=== PATIENT | female | born 1970 | race Caucasian/White ===

== ENCOUNTER 2018-01-07 11:09 | Emergency (ER) | payer OTHER ==
[2018-01-07 11:57] LABS: Absolute Lymphocytes (CBC) 1.5 K/uL (0.7-4.9); Absolute Monocytes 0.7 K/uL (0.1-1.3); Absolute Neutrophil 3.8 K/uL (1.8-8.0); Eosinophils % 4.7 % (0-4.4); Hematocrit 41.8 % (36.0-45.0); Lymphocytes % 23.3 % (15.3-44.8); MCH 33.4 pg (27.0-35.0); MCV 95.8 fL (80-100); MPV 10.5 fL (7.6-11.3); Monocytes % 10.5 % (3.3-12.3); Protime INR 0.92; RBC Red Blood Cell Count 4.36 M/uL (3.86-4.86)
[2018-01-07 12:04] LABS: Barbiturates NEGATIVE (NEGATIVE); Benzodiazepines NEGATIVE (NEGATIVE); Cocaine NEGATIVE (NEGATIVE); METHAMPHETAM NEGATIVE (NEGATIVE); Methadone NEGATIVE (NEGATIVE); Opiates NEGATIVE (NEGATIVE); Phencyclidine NEGATIVE (NEGATIVE); THC Cannibis NEGATIVE (NEGATIVE)
--- NOTE | 2018-01-07 12:15 | RAD REPORT ---
EXAM DESCRIPTION: CT - Head Brain Wo Cont - 01/07/2018 12:03 pm CLINICAL HISTORY: Syncope for COMPARISON: None. TECHNIQUE: Computed axial tomography of the head was obtained. IV contrast was not requested. All CT scans are performed using dose optimization technique as appropriate and may include automated exposure control or mA/KV adjustment according to patient size. FINDINGS: An intracranial bleed is not seen . The ventricles are normal in caliber. No extra-axial fluid collection is noted. Fluid within the sinuses/ mastoids is not seen. IMPRESSION: No acute intracranial abnormality is seen. If patient's symptoms persist MRI of the bra in would be recommended.
[2018-01-07] MEDS ORDERED: NA CHLORIDE 0.9% 1,000 ML ONE (12:16)
--- NOTE | 2018-01-07 12:20 | RAD REPORT ---
EXAM DESCRIPTION: RAD - Chest Single View - 01/07/2018 11:58 am CLINICAL HISTORY: Hypertension, cough, drug interaction COMPARISON: February 2017 TECHNIQUE: AP portable chest image was obtained 1155 hours . FINDINGS: Lungs are clear. Heart and vasculature are normal. No measurable pleural effusion and no p neumothorax. No acute bony abnormality seen. No acute aortic findings suspected. IMPRESSION: No acute cardiopulmonary process. No significant interval change.
[2018-01-07 12:31] LABS: ALT/SGPT 24 U/L (12-78); AST/SGOT 16 U/L (15-37); Albumin 3.7 g/dL (3.4-5.0); Alkaline Phosphatase 55 U/L (45-117); BUN Blood Urea Nitrogen 15 mg/dL (7-18); Bicarbonate 18 mmol/L (21-32); Bilirubin Direct 0.2 mg/dL (0-0.2); Bilirubin Total 0.7 mg/dL (0.2-1.0); Glucose Level 95 mg/dL (74-106); Lipase 311 U/L (73-393); Magnesium 2.2 mg/dL (1.8-2.4); NT PRO-BNP 359 pg/mL (<125); Potassium 4.2 mmol/L (3.5-5.1); Protein, Total 7.5 g/dL (6.4-8.2); Sodium Level 141 mmol/L (136-145); Troponin (Emerg Dept Use Only) < 0.02 ng/mL (0.0-0.045)
[2018-01-07 13:02] LABS: Urine Blood NEGATIVE (NEG); Urine Glucose NEGATIVE (NEG); Urine Protein NEGATIVE (NEG)
--- NOTE | 2018-01-07 13:29 | EDPHYS ---
Physician Documentation [facility] Name: Adriana Patton Age: 47 yrs Sex: Female : 1970 Arrival Date: 01/07/2018 Time: 11:12 Bed 8 Private MD: ED Physician Kirby Rodriguez HPI: 01/07 11:33 This 47 yrs old Female presents to ER via Ambulatory with complaints of martha Medical Complaint. 11:33 The patient has experienced near-syncope. Onset: The symptoms/episode began/occurred martha just prior to arrival. Duration: This was a single episode. Context: the episode(s) was witnessed, by family. Associated injury: The patient did not suffer any apparent associated injury. Associated signs and symptoms: The patient has no apparent associated signs or symptoms. The patient has not experienced similar symptoms in the past. 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 - Social history:: Smoking status: Patient/guardian denies using tobacco, Patient/guardian denies using alcohol. - Ebola Screening: : No symptoms or risks identified at this time. - Family history:: not pertinent. ROS: 11:33 Constitutional: Negative for fever, chills, and weight loss, Eyes: Negative for injury, martha pain, redness, and discharge, ENT: Negative for injury, pain, and discharge, Neck: Negative for injury, pain, and swelling, Cardiovascular: Negative for chest pain, palpitations, and edema, Respiratory: Negative for shortness of breath, cough, wheezing, and pleuritic chest pain, Abdomen/GI: Negative for abdominal pain, nausea, vomiting, diarrhea, and constipation, Back: Negative for injury and pain, : Negative for injury, bleeding, discharge, and swelling, MS/Extremity: Negative for injury and deformity, Skin: Negative for injury, rash, and discoloration, Psych: Negative for depression, anxiety, suicide ideation, homicidal ideation, and hallucinations, Allergy/Immunology: Negative for hives, rash, and allergies, Endocrine: Negative for neck swelling, polydipsia, polyuria, polyphagia, and marked weight changes, Hematologic/Lymphatic: Negative for swollen nodes, abnormal bleeding, and unusual bruising. 11:33 Neuro: Positive for near syncope. Exam: 11:33 Constitutional: This is a well developed, well nourished patient who is awake, alert, martha and in no acute distress. Head/Face: Normocephalic, atraumatic. Eyes: Pupils equal round and reactive to light, extra-ocular motions intact. Lids and lashes normal. Conjunctiva and sclera are non-icteric and not injected. Cornea within normal limits. Periorbital areas with no swelling, redness, or edema. ENT: Nares patent. No nasal discharge, no septal abnormalities noted. Tympanic membranes are normal and external auditory canals are clear. Oropharynx with no redness, swelling, or masses, exudates, or evidence of obstruction, uvula midline. Mucous membranes moist. Neck: Trachea midline, no thyromegaly or masses palpated, and no cervical lymphadenopathy. Supple, full range of motion without nuchal rigidity, or vertebral point tenderness. No Meningismus. Chest/axilla: Normal chest wall appearance and motion. Nontender with no deformity. No lesions are appreciated. Cardiovascular: Regular rate and rhythm with a normal S1 and S2. No gallops, murmurs, or rubs. Normal PMI, no JVD. No pulse deficits. Respiratory: Lungs have equal breath sounds bilaterally, clear to auscultation and percussion. No rales, rhonchi or wheezes noted. No increased work of breathing, no retractions or nasal flaring. Abdomen/GI: Soft, non-tender, with normal bowel sounds. No distension or tympany. No guarding or rebound. No evidence of tenderness throughout. Back: No spinal tenderness. No costovertebral tenderness. Full range of motion. Female : Normal external genitalia. Skin: Warm, dry with normal turgor. Normal color with no rashes, no lesions, and no evidence of cellulitis. MS/ Extremity: Pulses equal, no cyanosis. Neurovascular intact. Full, normal range of motion. Psych: Awake, alert, with orientation to person, place and time. Behavior, mood, and affect are within normal limits. 11:33 Neuro: Orientation: is normal, appropriate for stated age, no acute changes, Mentation: is normal, appropriate for stated age, no acute changes, Memory: is normal, appropriate for stated age, no acute changes, Cranial nerves: grossly normal, is grossly normal based on the patient's age, no acute changes, Cerebellar function: is grossly normal, is grossly normal based on the patient's age, no acute changes, Motor: is normal, is grossly normal based on the patient's age, Sensation: is normal, no obvious gross deficits, appropriate no acute changes, Gait: Babinski testing is normal, seizure activity, is not displayed by the patient. Vital Signs: 11:16 BP 171 / 100; Pulse 71; Resp 20; Temp 97.1; Pulse Ox 100% ; Weight 83.91 kg; Height 5 sv ft. 3 in. (160.02 cm); Pain 0/10; 12:33 BP 152 / 83; Pulse 59; Resp 16; Pulse Ox 100% on R/A; Pain 5/10; iw 11:16 Body Mass Index 32.77 (83.91 kg, 160.02 cm) sv MDM: 11:18 Patient medically screened. [facility] 11:36 Data reviewed: vital signs, nurses notes, lab test result(s), EKG, radiologic studies, [facility] CT scan, plain films. 01/07 11:23 Order name: Glucose, Ancillary Testing; Complete Time: 13:23 [facility] 01/07 11:32 Order name: Basic Metabolic Panel; Complete Time: 13:23 [facility] 01/07 11:32 Order name: CBC with Diff; Complete Time: 13:23 [facility] 01/07 11:32 Order name: LFT's; Complete Time: 13:23 [facility] 01/07 11:32 Order name: Magnesium; Complete Time: 13:23 [facility] 01/07 11:32 Order name: NT PRO-BNP; Complete Time: 13:23 [facility] 01/07 11:32 Order name: PT-INR; Complete Time: 13:23 [facility] 01/07 11:32 Order name: Troponin (emerg Dept Use Only); Complete Time: 13:23 [facility] 01/07 11:32 Order name: Lipase; Complete Time: 13:23 [facility] 01/07 11:32 Order name: Urine Culture [facility] 01/07 11:32 Order name: UDS; Complete Time: 13:23 [facility] 01/07 12:32 Order name: Urine Dipstick--Ancillary (enter results) 01/07 12:32 Order name: Urine --Ancillary (enter results) 01/07 12:33 Order name: Urine Dipstick-Ancillary; Complete Time: 13:23 [facility] 01/07 11:32 Order name: XRAY Chest (1 view); Complete Time: 13:23 [facility] 01/07 11:32 Order name: EKG; Complete Time: 11:33 [facility] 01/07 11:32 Order name: Cardiac monitoring; Complete Time: 12:37 [facility] 01/07 11:32 Order name: EKG - Nurse/Tech; Complete Time: 12:38 [facility] 01/07 11:32 Order name: IV Saline Lock; Complete Time: 11:47 [facility] 01/07 11:32 Order name: Labs collected and sent; Complete Time: 11:47 [facility] 01/07 11:32 Order name: O2 Per Protocol; Complete Time: 11:47 [facility] 01/07 11:32 Order name: O2 Sat Monitoring; Complete Time: 12:35 [facility] 01/07 11:32 Order name: CT Head Brain wo Cont; Complete Time: 13:23 [facility] 01/07 11:32 Order name: Urine Dipstick-Ancillary (obtain specimen); Complete Time: 12:35 [facility] 01/07 11:32 Order name: Urine Test (obtain specimen); Complete Time: 12:35 [facility] 01/07 12:33 Order name: Urine --Ancillary; Complete Time: 13:23 [facility] 01/07 13:24 Order name: PO challenge: juice; Complete Time: 13:27 [facility] Administered Medications: Discontinued: NS 0.9% 1000 ml IV at 125 ml/hr continuous 12:17 Drug: NS 0.9% 500 ml Route: IV; Rate: bolus; Site: right antecubital; iw 13:00 Follow up: IV Status: Completed infusion iw 13:04 Follow up: IV Status: Completed infusion; IV Intake: 500ml tl3 13:05 Drug: NS 0.9% 1000 ml Route: IV; Rate: 125 ml/hr; Site: right antecubital; Delivery: tl3 Primary tubing; Point of Care Testing: Blood Glucose: 11:23 Blood Glucose: 85 mg/dL; sv Ranges: Critical Glucose Levels:Adult <50 mg/dl or >400 mg/dl <40 mg/dl or >180 mg/dl Disposition: 01/07/18 13:28 Discharged to Home. Impression: Hyperglycemia, unspecified - resolved, Weakness, Unspecified kidney failure. - Condition is Stable. - Discharge Instructions: Hyperglycemia, Near-Syncope, Weakness, Fatigue, Near-Syncope, Ppur-[id number]-Ohdo, Blood Glucose Monitoring, Adult, Weakness, [id number]. - Medication Reconciliation Form, Thank You Letter, Antibiotic Education, Prescription Opioid Use, Family Work Release form. - Follow up: Private Physician; When: 48 Hours; Reason: Recheck today's complaints, Continuance of care, Re-evaluation by your physician. Signatures: Dispatcher [employer] Rosalee Pradhan RN RN sv Anderson, Corey, MD MD cha Williams, Irene, RN RN iw Lowrey, Tammy, RN RN tl3 Corrections: (The following items were deleted from the chart) 13:29 13:28 01/07/2018 13:28 Discharged to Home. Impression: Hyperglycemia, unspecified - martha resolved; Weakness. Condition is Stable. Forms are Medication Reconciliation Form, Thank You Letter, Antibiotic Education, Prescription Opioid Use. Follow up: Private Physician; When: 48 Hours; Reason: Recheck today's complaints, Continuance of care, Re-evaluation by your physician. [facility] 13:56 13:29 01/07/2018 13:28 Discharged to Home. Impression: Hyperglycemia, unspecified - iw resolved; Weakness; Unspecified kidney failure. Condition is Stable. Discharge Instructions: Hyperglycemia, Near-Syncope, Weakness, Fatigue, Near-Syncope, [id number]-[id number], Blood Glucose Monitoring, Adult, Weakness, [id number]. Forms are Medication Reconciliation Form, Thank You Letter, Antibiotic Education, Prescription Opioid Use. Follow up: Private Physician; When: 48 Hours; Reason: Recheck today's complaints, Continuance of care, Re-evaluation by your physician. martha
--- NOTE | 2018-01-07 13:29 | ER ---
Nurse's Notes [facility] Name: Adriana Patton Age: 47 yrs Sex: Female : 1970 Arrival Date: 01/07/2018 Time: 11:12 Bed 8 Private MD: Diagnosis: Hyperglycemia, unspecified-resolved;Weakness;Unspecified kidney failure Presentation: 01/07 11:14 Presenting complaint: Patient states: "My psychiatrist sent me over here because they sv think that I'm having interactions with my medications that are causing me to have high blood sugar." Symptoms have been going on for about 3 weeks, cold sweats, shaky and dry mouth. Transition of care: patient was not received from another setting of care. Onset of symptoms was December 2017. Care prior to arrival: None. 11:14 Method Of Arrival: Ambulatory sv 11:14 Acuity: NENA 3 sv 11:15 Risk Assessment: Do you want to hurt yourself or someone else? Patient reports no iw desire to harm self or others. 11:20 Initial Sepsis Screen: Does the patient meet any 2 criteria? No. Patient's initial iw sepsis screen is negative. Does the patient have a suspected source of infection? No. Patient's initial sepsis screen is negative. 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 - Social history:: Smoking status: Patient/guardian denies using tobacco, Patient/guardian denies using alcohol. - Ebola Screening: : No symptoms or risks identified at this time. - Family history:: not pertinent. Screenin:32 Abuse screen: Denies threats or abuse. Denies injuries from another. Nutritional iw screening: No deficits noted. Tuberculosis screening: No symptoms or risk factors identified. Fall Risk IV access (20 points). Assessment: 11:35 General: Appears in no apparent distress. comfortable, Behavior is calm, cooperative. iw Pain: Denies pain. Neuro: Level of Consciousness is awake, alert, obeys commands, Oriented to person, place, time, situation, Moves all extremities. Full function. Cardiovascular: Capillary refill < 3 seconds in bilateral fingers Patient's skin is warm and dry. Respiratory: Respiratory effort is even, unlabored, Respiratory pattern is regular, symmetrical. Derm: Skin is intact, is healthy with good turgor. Musculoskeletal: Range of motion: intact in all extremities. 12:31 Reassessment: Patient appears in no apparent distress at this time. Patient and/or iw family updated on plan of care and expected duration. Pain level reassessed. Patient is alert, oriented x 3, equal unlabored respirations, skin warm/dry/pink. Vital Signs: 11:16 BP 171 / 100; Pulse 71; Resp 20; Temp 97.1; Pulse Ox 100% ; Weight 83.91 kg; Height 5 sv ft. 3 in. (160.02 cm); Pain 0/10; 12:33 BP 152 / 83; Pulse 59; Resp 16; Pulse Ox 100% on R/A; Pain 5/10; iw 11:16 Body Mass Index 32.77 (83.91 kg, 160.02 cm) sv ED Course: 11:12 Patient arrived in ED. mr 11:16 Triage completed. sv 11:17 Kirby Rodriguez MD is Attending Physician. martha 11:17 Arm band placed on. sv 11:36 Evangelina Benton, RN is Primary Nurse. iw 11:44 Initial lab(s) drawn, by ny, sent to lab. Inserted saline lock: 20 gauge in right iw antecubital area, using aseptic technique. Blood collected. 11:50 Patient has correct armband on for positive identification. iw 11:55 XRAY Chest (1 view) In Process Unspecified. EDMS 12:02 CT completed. Patient tolerated procedure well. Patient moved to CT via wheelchair. sj Patient moved back from CT. 12:02 CT Head Brain wo Cont In Process Unspecified. EDMS 12:06 EKG done, by irrigation technician. dt2 13:00 Urine --Ancillary (enter results) Sent. tl3 13:00 Urine Dipstick--Ancillary (enter results) Sent. tl3 13:00 No provider procedures requiring assistance completed. iw 13:50 IV discontinued, intact, bleeding controlled, No redness/swelling at site. Pressure iw dressing applied. Administered Medications: Discontinued: NS 0.9% 1000 ml IV at 125 ml/hr continuous 12:17 Drug: NS 0.9% 500 ml Route: IV; Rate: bolus; Site: right antecubital; iw 13:00 Follow up: IV Status: Completed infusion iw 13:04 Follow up: IV Status: Completed infusion; IV Intake: 500ml tl3 13:05 Drug: NS 0.9% 1000 ml Route: IV; Rate: 125 ml/hr; Site: right antecubital; Delivery: tl3 Primary tubing; Point of Care Testing: Blood Glucose: 11:23 Blood Glucose: 85 mg/dL; sv Ranges: Intake: 13:04 IV: 500ml; Total: 500ml. tl3 Outcome: 13:28 Discharge ordered by . martha 13:55 Discharged to home ambulatory, with family. iw 13:55 Condition: good 13:55 Discharge instructions given to patient, family, Instructed on discharge instructions, follow up and referral plans. Demonstrated understanding of instructions, follow-up care. 13:56 Patient left the ED. iw Signatures: Dispatcher [employer] Rosalee Pradhan, RN Kirby Berger MD MD cha Rivera, Phyllis mr Jan, Evangelina Hendricks RN RN iw Lowrey, Tammy, RN RN 3 Maddie Gray
--- NOTE | 2018-01-07 15:15 | EKG ---
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
== END 2018-01-07 13:56 | disposition home or self-care (01) ==
LOC: ER 11:09
DX: R53.1 Weakness (principal); N19 Unspecified kidney failure; Z88.5 Allergy status to narcotic agent; Z88.6 Allergy status to analgesic agent; Z88.8 Allergy status to other drugs, medicaments and biological substances
CPT/HCPCS: 36415; 70450; 71045; 80048; 80076; 80307 ×8; 81003; 81025; 82962; 83690; 83735; 83880; 84484; 85025; 85610; 87086; 87088; 93005; 96360; 99284; J7030

== ENCOUNTER 2018-04-23 19:09 | Emergency (ER) | payer OTHER ==
--- OUTSIDE RECORDS SUMMARY | 2018-04-23 19:12 | XMS REPORT ---
:1970 Author Organization [employer] Care Team Providers Name Role Phone Martin Horton Provider Role Unavailable Allergies No Known Allergies Problems Problem Type Condition Code Onset Dates Condition Status Problem Dermatophytosis of body B35.4 Active Problem Unspecified ankle and foot joint M24.9 Active derangement Problem Dizziness and giddiness R42 Active Problem Unspecified injury of unspecified S89.90XA Active lower leg, initial encounter Problem Family history of diabetes Z83.3 Active mellitus Problem 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, left ankle Problem Pain in joint, ankle and foot M25.579 Active Problem Loose body in unspecified ankle M24.073 Active Problem Chronic tension-type headache, not G44.229 Active intractable Problem Psychosis, unspecified psychosis F29 Active type Problem Generalized anxiety disorder F41.1 Active Problem Major depressive disorder, F33.9 Active recurrent episode Problem Other chronic pain G89.29 Active Problem Gout M10.9 Active Problem Open bite, left lower leg, initial S81.852A Active encounter Problem Cellulitis of leg L03.119 Active Problem Hallucinations R44.3 Active Problem Routine medical exam Z00.00 Active Problem Family history of ischemic heart Z82.49 Active disease Problem Allergic urticaria L50.0 Active Problem Gouty arthropathy M10.9 Active Problem Body mass index (BMI) of 20.0 to Z68.20 Active 20.9 in adult Problem Other specified viral exanthemata B08.8 Active Problem Family history of other Z82.49 Active cardiovascular diseases Problem Transient alteration of awareness R40.4 Active Problem Other drug allergy Z88.8 Active Medications Medication Code Code Instructions Start End Date Status Dosage System Date Loratadine NDC 02633521954 10 mg Orally Mar 05, Apr 02, Active 1 tablet Once a day 2016 2017 Levaquin ND 04665753999 500 mg Orally Active 1 tablet every day (qd) Benzonatate ND 27324108178 200 MG Orally Active 1 capsule Three times a as needed day prn cough Results No Known Results Summary Purpose [employer] Submission
--- OUTSIDE RECORDS SUMMARY | 2018-04-23 19:12 | XMS REPORT ---
:1970 Author [facility] Care Team Providers Name Role Phone Martin Horton Provider Role Unavailable Allergies, Adverse Reactions, Alerts Substance Reaction Event Type Vicodin Info Not Available Drug Allergy Codeine Sulfate Info Not Available Drug Allergy Chocolate Concentrate Info Not Available Drug Allergy Allopurinol Info Not Available Drug Allergy Problems Problem Type Condition Code Onset Dates Condition Status Assessment Pneumonia due to infectious J18.9 Active organism, unspecified laterality, unspecified part of lung Problem Dermatophytosis of body B35.4 Active Problem [...] Medications Medication Code Code Instructions Start End Status Dosage System Date Date Azithromycin [facility] [address]-55 250 MG Orally Active not defined Ceftin [facility] 84718976837 500 MG Orally Feb 25, Active 1 tablet Twice a day 2016 Ventolin HFA [facility] [address]-39 90 MCG/ACT Active 2 puffs as Inhalation every needed 4 hrs Lorazepam [facility] 27035320600 2 MG Orally TID Active 1 tablet Topamax [facility] 39719005423 25 MG Orally Active 1 tablet twice a day (bid) Vital Signs Date/Time: Feb 25, 2017 BMI 33.12 Index Weight 187 lbs Height 63 in Temperature 98.3 F Cardiac Monitoring Heart Rate 84 /min Blood Pressure Diastolic 86 mm Hg Blood Pressure Systolic 134 mm Hg Results No Known Results Summary Purpose [employer]ClinicalWorks Submission
--- OUTSIDE RECORDS SUMMARY | 2018-04-23 19:12 | XMS REPORT | Continuity of Care Document ---
:1970 Author Organization Interface Problems Problem Status Onset Classification Date Comments Source Date Reported Dizziness Active Diagnosis 08/24/2016 Martin Gay [place] SOB Active Diagnosis 08/24/2016 Martin Gay [place] Body mass index of Active Problem 04/09/2017 Martin Gay 20.0 to 20.9 in [place] adult Unspecified ankle Active Problem 04/09/2017 Martin Gay and foot joint [place] derangement Family history of Active Problem 04/09/2017 Martin Gay diabetes mellitus [place] Loose body in Active Problem 04/09/2017 Martin Gay unspecified ankle [place] Family history of Active Problem 04/09/2017 Martin Gay ischemic heart [place] disease Unspecified injury Active Problem 04/09/2017 Martin Gay of unspecified [place] lower leg, initial encounter Pain in joint, Active Problem 04/09/2017 Martin Gay ankle and foot [place] Other articular Active Problem 04/09/2017 Martin Gay cartilage [place] disorders, left ankle Hallucinations Active Problem 04/09/2017 Martin Gay [place] Chronic Active Problem 04/09/2017 Martin Gay tension-type [place] headache, not intractable Transient Active Problem 04/09/2017 Martin Gay alteration of [place] awareness Gouty arthropathy Active Problem 04/09/2017 Martin Gay [place] Psychosis, Active Problem 04/09/2017 Martin Gay unspecified [place] psychosis type Family history of Active Problem 04/09/2017 Martin Gay other [place] cardiovascular diseases Open bite, left Active Problem 04/09/2017 Martin Gay lower leg, initial [place] encounter Cellulitis of leg Active Problem 04/09/2017 Martin Gay [place] Other chronic pain Active Problem 04/09/2017 Martin Gay [place] Routine medical Active Problem 04/09/2017 Martin Gay exam [place] Other specified Active Problem 04/09/2017 Martin Gay viral exanthemata [place] Allergic urticaria Active Problem 04/09/2017 Martin Gay [place] Dizziness and Active Problem 04/09/2017 Martin Gay giddiness [place] Other drug allergy Active Problem 04/09/2017 Martin Gay [place] Generalized anxiety Active Problem 04/09/2017 Martin Gay disorder [place] Dermatophytosis of Active Problem 04/09/2017 Martin Gay body [place] Gout Active Problem 04/09/2017 Martin Gay [place] Major depressive Active Problem 04/09/2017 Martin Gay disorder, recurrent [place] episode Pneumonia due to Active Diagnosis 02/26/2017 Martin Gay infectious [place] organism, unspecified laterality, unspecified part of lung Cellulitis of leg Active Diagnosis 11/27/2014 Martin Gay [place] Unspecified ankle Active Diagnosis 11/27/2014 Martin Gay and foot joint [place] derangement Injury, other and Active Diagnosis 11/27/2014 Martin Gay unspecified, knee, [place] leg, ankle, and foot Family history of Active Diagnosis 11/27/2014 Martin Gay diabetes mellitus [place] Family history of Active Diagnosis 11/27/2014 Martin Gay ischemic heart [place] disease Family history of Active Diagnosis 11/27/2014 Martin Gay other [place] cardiovascular diseases Gouty arthropathy, Active Diagnosis 11/27/2014 Martin Gay unspecified [place] Gout, unspecified Active Diagnosis 11/27/2014 Martin Gay [place] Allergic urticaria Active Problem 11/27/2014 Martin Gay [place] Body Mass Index Active Diagnosis 11/27/2014 Martin Gay between 19-24, [place] adult Major depressive Active Diagnosis 11/27/2014 Martin Gay disorder, recurrent [place] episode, unspecified Dermatophytosis of Active Problem 11/27/2014 Martin Gay the body [place] Generalized anxiety Active Problem 11/27/2014 Martin Gay disorder [place] Pain in joint, Active Problem 11/27/2014 Martin Gay ankle and foot [place] Dog bite of left Active Diagnosis 11/27/2014 Martin Gay lower leg with [place] infection Loose body in ankle Active Problem 11/27/2014 Martin Gay and foot joint [place] 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/2014 Martin Gay disorder, ankle and [place] foot Other drug allergy Active Problem 11/27/2014 Martin Gay [place] Other specified Active Problem 11/27/2014 Martin Gay viral exanthemata [place] Transient Active Problem 11/27/2014 Martin Gay alteration of [place] awareness Dizziness and Active Problem 11/27/2014 Martin Gay giddiness [place] Acute pain of left Active Diagnosis 04/21/2016 Martin Gay shoulder [place] Pain in unspecified Active Diagnosis 04/21/2016 Martin Gay joint [place] Body mass index Active Diagnosis 04/21/2016 Martin Gay 29.0-29.9, adult [place] Medications Medication Details Route Status Patient Ordering Order Source Instructions Provider Date Loratadine 1 tablet Orally Active 10 mg Orally [place] Martin aGy Once a day 017 [place] Ceftin 1 tablet Orally Active 500 MG Orally [place] Martin Gay Twice a day 017 [place] Augmentin 1 tablet Orally Active 875-125 MG [place] Martin Gay Orally Twice a 015 [place] day with food Lorazepam 1 tablet Orally Active 2 MG Orally [place] Martin Gay TID [place] Wellbutrin SR not Orally Active 200 MG Orally [place] Martin Gay defined [place] Topamax 1 tablet Orally Active 25 MG Orally [place] Martin Gay twice a day [place] (bid) Levaquin 1 tablet Orally Active 500 mg Orally [place] Martin Gay every day (qd) [place] Benzonatate 1 capsule Orally Active 200 MG Orally [place] Martin Gay as needed Three times a [place] day prn cough Azithromycin not Orally Active 250 MG Orally [place] Martin Gay defined [place] Ventolin HFA 2 puffs as Inhalation Active 90 MCG/ACT [place] Martin Gay needed Inhalation [place] every 4 hrs Lorazepam 1 tablet Orally Active 2 MG Orally [place] Martin Gay TID [place] Topamax 1 tablet Orally Active 25 MG Orally [place] Martin Gay twice a day [place] (bid) Cefdinir 1 capsule Orally Active 300 MG Orally [place] Martin Gay Twice a day [place] Xanax 1 tablet Orally Active 0.5 MG Orally [place] Martin Gay Three times a [place] day Augmentin 1 tablet Orally Active 875-125 MG [place] Martin Gay Orally Twice a [place] day with food Topamax 1 tablet Orally Active 200 MG Orally [place] Martin Gay Once a day [place] Topamax 1.5 tablet Orally Active 100 MG Orally [place] Martin Gay twice a day [place] (bid) Allergies, Adverse Reactions, Alerts Substance Category Reaction Severity Reaction Status Date Comments Source type Reported Vicodin Adverse Info Not Adverse Active Martin Reaction Available Reaction 7 E [place] Codeine Adverse Info Not Adverse Active Martin Sulfate Reaction Available Reaction 7 E [place] Chocolate Adverse Info Not Adverse Active Martin Concentrate Reaction Available Reaction 7 E [place] Allopurinol Adverse Info Not Adverse Active Martin Reaction Available Reaction 7 E [place] Immunizations Immunization Date Given Site Status Last Updated Comments Source Results Order Results Value Reference Date Interpretation Comments Source Name Range Vital Signs Vital Sign Value Date Comments Source Weight 187 02/25/2017 Martin [place] Height 63 02/25/2017 Martin E [place] Temperature Oral (F) 98.3 F 02/25/2017 Martin Victor Hugo [place] Heart Rate 84 02/25/2017 Martin E [place] Diastolic (mm Hg) 86 02/25/2017 Martin E [place] Systolic (mm Hg) 134 02/25/2017 Martin E [place] Weight 170 08/22/2016 Martin E [place] Height 63 08/22/2016 Martin E [place] Temperature Oral (F) 98.5 F 08/22/2016 Martin E [place] Heart Rate 78 08/22/2016 Martin E [place] Diastolic (mm Hg) 98 08/22/2016 Martin E [place] Systolic (mm Hg) 144 08/22/2016 Martin E [place] Weight 164 04/19/2016 Martin E [place] Height 63 04/19/2016 Martin E [place] Temperature Oral (F) 97.5 F 04/19/2016 Martin E [place] Heart Rate 60 04/19/2016 Martin E [place] Diastolic (mm Hg) 84 04/19/2016 Martin E [place] Systolic (mm Hg) 130 04/19/2016 Martin E [place] Weight 142 11/25/2014 Martin E [place] Height 63 11/25/2014 Martin E [place] Temperature Oral (F) 97.9 F 11/25/2014 Martin E [place] Heart Rate 78 11/25/2014 Martin Gay [place] Diastolic (mm Hg) 82 11/25/2014 Martin Gay [place] Systolic (mm Hg) 114 11/25/2014 Martin Gay Clifford Encounters Location Location Encounter Encounter Reason Attending ADM DC Status Source Details Type Number For Provider Date Date Visit Martin Fischer dog bite [id number] 11/25 11/25 Martin Horton, [id number] /2014 OBDULIO Gay DO [id number] [facility] 271 Martin Fischer dog bite [id number] 11/25 11/25 Martin Horton, [id number] /2014 OBDULIO Gay DO [id number] [address] Martin Fischer Unknown [id number] 04/19 04/19 Martin Horton, [id number] /2016 OBDULIO Gay DO [id number] Clifford [address] Procedures Procedure Code Date Perfomer Comments Source
--- OUTSIDE RECORDS SUMMARY | 2018-04-23 19:12 | XMS REPORT ---
:1970 Author Organization [facility] Providers Name Role Phone Martin Horton Provider Role Unavailable Allergies, Adverse Reactions, Alerts Substance Reaction Event Type Vicodin Info Not Available Drug Allergy Codeine Sulfate Info Not Available Drug Allergy Chocolate Concentrate Info Not Available Drug Allergy Allopurinol Info Not Available Drug Allergy Problems Problem Type Condition Code Onset Dates Condition Status Assessment Dizziness R42 Active Assessment SOB (shortness of breath) R06.02 Active Problem Body mass index (BMI) of 20.0 to Z68.20 Active 20.9 in adult Problem Unspecified ankle and foot joint M24.9 Active derangement Problem Family history of diabetes Z83.3 Active mellitus Problem Loose body in unspecified ankle M24.073 Active Problem Family history of ischemic heart Z82.49 Active disease Problem Unspecified injury of unspecified S89.90XA Active lower leg, initial encounter Problem Pain in joint, ankle and foot M25.579 Active Problem 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, left ankle Problem Hallucinations R44.3 Active Problem Chronic tension-type headache, not G44.229 Active intractable Problem Transient alteration of awareness R40.4 Active Problem Gouty arthropathy M10.9 Active Problem Psychosis, unspecified psychosis F29 Active type Problem Family history of other Z82.49 Active cardiovascular diseases Problem Open bite, left lower leg, initial S81.852A Active encounter Problem Cellulitis of leg L03.119 Active Problem Other chronic pain G89.29 Active Problem Routine medical exam Z00.00 Active Problem Other specified viral exanthemata B08.8 Active Problem Allergic urticaria L50.0 Active Problem Dizziness and giddiness R42 Active Problem Other drug allergy Z88.8 Active Problem Generalized anxiety disorder F41.1 Active Problem Dermatophytosis of body B35.4 Active Problem Gout M10.9 Active Problem Major depressive disorder, F33.9 Active recurrent episode Medications Medication Code System Code Instructions Start End Date Status Dosage Date Lorazepam [facility] 39266-357 2 MG Orally TID Active 1 tablet 2-01 Wellbutrin SR [facility] 34667-379 200 MG Orally Active not defined Topamax [facility] 18953-056 25 MG Orally Active 1 tablet 6-30 twice a day (bid) Vital Signs Date/Time: August 22, 2016 BMI 30.11 Index Weight 170 lbs Height 63 in Temperature 98.5 F Cardiac Monitoring Heart Rate 78 /min Blood Pressure Diastolic 98 mm Hg Blood Pressure Systolic 144 mm Hg Results No Known Results Summary Purpose eClinicalWorks Submission
--- OUTSIDE RECORDS SUMMARY | 2018-04-23 19:12 | XMS REPORT ---
:1970 Author Organization [employer] Care Team Providers Name Role Phone Martin Horton Provider Role Unavailable Allergies No Known Allergies Problems Problem Type Condition Code Onset Dates Condition Status Problem Body mass index (BMI) of 20.0 [...] depressive disorder, F33.9 Active recurrent episode Medications No Known Medications Results No Known Results Summary Purpose eClinicalWorks Submission
--- OUTSIDE RECORDS SUMMARY | 2018-04-23 19:12 | XMS REPORT ---
[...] drug allergy Z88.8 Active Medications Medication Code System Code Instructions Start End Date Status Dosage Date Cefdinir [facility] 40853842395 300 MG Orally Active 1 capsule Twice a day Results No Known Results Summary Purpose eClinicalWorks Submission
--- OUTSIDE RECORDS SUMMARY | 2018-04-23 19:13 | XMS REPORT ---
[...] Problem Other drug allergy Z88.8 Active Medications No Known Medications Results No Known Results Summary Purpose eClinicalWorks Submission
--- OUTSIDE RECORDS SUMMARY | 2018-04-23 19:13 | XMS REPORT ---
:1970 Author [facility] Team Providers Name Role Phone Martin Horton Provider Role Unavailable Allergies, Adverse Reactions, Alerts Substance Reaction Event Type Vicodin Info Not Available Drug Allergy Codeine Sulfate Info Not Available Drug Allergy Chocolate Concentrate Info Not Available Drug Allergy Allopurinol Info Not Available Drug Allergy Encounters Encounter Location Date dog bite [place] Nov 25, 2014 Unknown [place] H[place], [place] Apr 19, 2016 Problems Problem Type Condition ICD-9 Code Onset Dates Condition Status Assessment Family history of other Z82.49 Active cardiovascular diseases Assessment Family history of ischemic heart Z82.49 Active disease Assessment Gout M10.9 Active Assessment Dizziness and giddiness R42 Active Assessment Major depressive disorder, F33.9 Active recurrent episode Assessment Generalized anxiety disorder F41.1 Active Assessment Acute pain of left shoulder M25.512 Active Assessment Routine medical exam Z00.00 Active Problem Body mass index (BMI) of 20.0 to Z68.20 Active 20.9 in adult Problem Unspecified ankle and foot joint M24.9 Active derangement Problem Family history of diabetes Z83.3 Active mellitus Problem Loose body in unspecified ankle M24.073 Active Problem Family history of ischemic heart Z82.49 Active disease Problem Unspecified injury of S89.90XA Active unspecified lower leg, initial encounter Problem Pain in joint, ankle and foot M25.579 Active Problem 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, left ankle Problem Hallucinations R44.3 Active Problem Chronic tension-type headache, G44.229 Active not intractable Problem Transient alteration of R40.4 Active awareness Problem Gouty arthropathy M10.9 Active Assessment Pain in unspecified joint M25.50 Active Problem Psychosis, unspecified psychosis F29 Active type Problem Family history of other Z82.49 Active cardiovascular diseases Assessment Body mass index 29.0-29.9, adult Z68.29 Active Problem Open bite, left lower leg, S81.852A Active initial encounter Problem Cellulitis of leg L03.119 Active Problem Other chronic pain G89.29 Active Problem Routine medical exam Z00.00 Active Assessment Pain in joint, ankle and foot M25.579 Active Problem Other specified viral B08.8 Active exanthemata Assessment Family history of diabetes Z83.3 Active mellitus Problem Allergic urticaria L50.0 Active Assessment Hallucinations R44.3 Active Problem Dizziness and giddiness R42 Active Assessment Psychosis, unspecified psychosis F29 Active type Problem Other drug allergy Z88.8 Active Assessment Other chronic pain G89.29 Active Problem Generalized anxiety disorder F41.1 Active Assessment Chronic tension-type headache, G44.229 Active not intractable Problem Dermatophytosis of body B35.4 Active Problem Gout M10.9 Active Problem Major depressive disorder, F33.9 Active recurrent episode Medications Medication Code System Code Instructions Start End Date Status Dosage Date Wellbutrin SR [facility] 84257-21 200 MG Orally Active Unknown 22 Wellbutrin SR [facility] 99211-58 200 MG Orally Active Unknown Augmentin [facility] 66747-38 875-125 MG Active 1 tablet 86-12 Orally Twice a day with food Lorazepam [facility] 67768-08 2 MG Orally TID Active 1 tablet 22- Topamax [facility] 18109-41 100 MG Orally Active 1.5 tablet 28-30 twice a day (bid) Social History Social History Element Qualifiers Date Reported Tobacco Use: . Are you a: former smoker Apr 19, 2016 Use of recreational / street drugs? . Answer: No Apr 19, 2016 Marital Status: . Apr 19, 2016 Do you exercise? . Answer: No Apr 19, 2016 Do you drink alcohol? . Status: No Apr 19, 2016 Family history Qualifier Description Comment Date Reported Maternal Grandmother diabetes Apr 19, 2016 Paternal Grandmother Comment not available Apr 19, 2016 Siblings alive Comment not available Apr 19, 2016 Maternal Grandfather Comment not available Apr 19, 2016 Children Comment not available Apr 19, 2016 Father Comment not available Apr 19, 2016 Paternal Grandfather Comment not available Apr 19, 2016 Mother alive high blood pressure, heart disease Apr 19, 2016 Other: Comment not available Apr 19, 2016 Vital Signs Date/Time: Apr 19, 2016 Weight 164 lbs Height 63 in Temperature 97.5 F Cardiac Monitoring Heart Rate 60 /min Blood Pressure Diastolic 84 mm Hg Blood Pressure Systolic 130 mm Hg Summary Purpose eClinicalWorks Submission
--- OUTSIDE RECORDS SUMMARY | 2018-04-23 19:13 | XMS REPORT ---
:1970 Author Organization [facility] Team Providers Name Role Phone Martin Horton Provider Role Unavailable Allergies, Adverse Reactions, Alerts Substance Reaction Event Type Codeine Sulfate Info Not Available Drug Allergy Chocolate Concentrate Info Not Available Drug Allergy Allopurinol Info Not Available Drug Allergy Encounters Encounter Location Date dog bite Martin H[place], [place] Nov 25, 2014 Problems Problem Type Condition ICD-9 Code Onset Dates Condition Status Assessment Cellulitis of leg 682.6 Active Assessment Unspecified ankle and foot joint 718.97 Active derangement Assessment Injury, other and unspecified, 959.7 Active knee, leg, ankle, and foot Assessment Family history of diabetes V18.0 Active mellitus Assessment Family history of ischemic heart V17.3 Active disease Assessment Family history of other V17.49 Active cardiovascular diseases Assessment Gouty arthropathy, unspecified 274.00 Active Assessment Gout, unspecified 274.9 Active Problem Allergic urticaria 708.0 Active Assessment Body Mass Index between 19-24, V85.1 Active adult Problem Gout, unspecified 274.9 Active Assessment Major depressive disorder, 296.30 Active recurrent episode, unspecified Problem Major depressive disorder, 296.30 Active recurrent episode, unspecified Problem Dermatophytosis of the body 110.5 Active Problem Generalized anxiety disorder 300.02 Active Problem Cellulitis of leg 682.6 Active Problem Pain in joint, ankle and foot 719.47 Active Problem Body Mass Index between 19-24, V85.1 Active adult Assessment Dog bite of left lower leg with 891.1 Active infection Problem Dog bite of left lower leg with 891.1 Active infection Assessment Generalized anxiety disorder 300.02 Active Problem Loose body in ankle and foot 718.17 Active joint Problem Unspecified ankle and foot joint 718.97 Active derangement Problem Articular cartilage disorder, 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 Active ankle and foot Problem Injury, other and unspecified, 959.7 Active knee, leg, ankle, and foot Problem Family history of other V17.49 Active cardiovascular diseases Problem Gouty arthropathy, unspecified 274.00 Active Problem Family history of diabetes V18.0 Active mellitus Problem Family history of ischemic heart V17.3 Active disease Problem Other drug allergy 995.27 Active Problem Other specified viral 057.8 Active exanthemata Problem Transient alteration of 780.02 Active awareness Problem Dizziness and giddiness 780.4 Active Medications Medication Code System Code Instructions Start End Date Status Dosage Date Lorazepam [facility] 78567-39 2 MG Orally TID Active 1 tablet at 22-01 bedtime as needed Xanax [facility] 43826-12 0.5 MG Orally Active 1 tablet 55-01 Three times a day Augmentin [facility] 51809-40 875-125 MG Active 1 tablet 86-12 Orally Twice a day with food Augmentin [facility] 76545-43 875-125 MG Nov 25Dec 25, Active 1 tablet 86-12 Orally Twice a 2014 2014 day with food Topamax [facility] 41240-22 200 MG Orally Active 1 tablet 43-30 Once a day Wellbutrin SR [facility] 33839-35 200 MG Orally Active Unknown Social History Social History Element Qualifiers Date Reported Tobacco Use: . Are you a: former smoker Nov 25, 2014 Use of recreational / street drugs? . Answer: No Nov 25, 2014 Do you exercise? . Answer: No Nov 25, 2014 Do you drink alcohol? . Status: No Nov 25, 2014 Family history Qualifier Description Comment Date Reported Maternal Grandmother diabetes Nov 25, 2014 Paternal Grandmother Comment not available Nov 25, 2014 Siblings alive Comment not available Nov 25, 2014 Maternal Grandfather Comment not available Nov 25, 2014 Children Comment not available Nov 25, 2014 Father Comment not available Nov 25, 2014 Paternal Grandfather Comment not available Nov 25, 2014 Mother alive high blood pressure, heart disease Nov 25, 2014 Other: Comment not available Nov 25, 2014 Vital Signs Date/Time: Nov 25, 2014 Weight 142 lbs Height 63 in Temperature 97.9 F Cardiac Monitoring Heart Rate 78 /min Blood Pressure Diastolic 82 mm Hg Blood Pressure Systolic 114 mm Hg Summary Purpose eClinicalWorks Submission
--- NOTE | 2018-04-23 20:06 | RAD REPORT ---
EXAM DESCRIPTION: Lyn Ngo (2 Views)04/23/2018 7:58 pm CLINICAL HISTORY: Cough COMPARISON: December 2017 FINDINGS: The lungs appear clear of acute infiltrate. The heart is normal size IMPRESSION: No acute abnormalities displayed
--- NOTE | 2018-04-23 20:55 | EDPHYS ---
Physician Documentation [facility] Name: Adriana Patton Age: 47 yrs Sex: Female : 1970 Arrival Date: 04/23/2018 Time: 19:17 Bed 8 Private MD: ED Physician Balaji Vo HPI: 04/23 20:51 This 47 yrs old Female presents to ER via Ambulatory with complaints of Chest pm1 Congestion, Fever, Cough. 20:51 The patient or guardian reports cough, with no sputum. Onset: The symptoms/episode pm1 began/occurred On and off cough for 6 weeks with onset of fever yesterday. Patient had no symptoms 2 days ago, no fever or cough . Severity of symptoms: At their worst the symptoms were. Modifying factors: The symptoms are alleviated by nothing, the symptoms are aggravated by nothing. Associated signs and symptoms: Pertinent positives: fever, Bodyaches, Pertinent negatives: chest pain, diarrhea, ear ache, rhinorrhea, sore throat. The patient has not experienced similar symptoms in the past. The patient has not recently seen a physician. 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 - Social history:: Smoking status: unknown. - Ebola Screening: : No symptoms or risks identified at this time. ROS: 20:51 Eyes: Negative for injury, pain, redness, and discharge, ENT: Negative for injury, pm1 pain, and discharge. 20:51 Neck: Negative for injury, pain, and swelling, Cardiovascular: Negative for chest pain, palpitations, and edema. 20:51 Abdomen/GI: Negative for abdominal pain, nausea, vomiting, diarrhea, and constipation, Back: Negative for injury and pain, : Negative for injury, bleeding, discharge, and swelling, MS/Extremity: Negative for injury and deformity, Skin: Negative for injury, rash, and discoloration, Neuro: Negative for headache, weakness, numbness, tingling, and seizure. 20:51 Constitutional: Positive for body aches, fever, Negative for poor PO intake. 20:51 Respiratory: Positive for cough, Negative for shortness of breath, sputum production, wheezing. Exam: 20:51 Constitutional: This is a well developed, well nourished patient who is awake, alert, pm1 and in no acute distress. Head/Face: Normocephalic, atraumatic. Eyes: Pupils equal round and reactive to light, extra-ocular motions intact. Lids and lashes normal. Conjunctiva and sclera are non-icteric and not injected. Cornea within normal limits. Periorbital areas with no swelling, redness, or edema. ENT: Nares patent. No nasal discharge, no septal abnormalities noted. Tympanic membranes are normal and external auditory canals are clear. Oropharynx with no redness, swelling, or masses, exudates, or evidence of obstruction, uvula midline. Mucous membranes moist. Neck: Trachea midline, no thyromegaly or masses palpated, and no cervical lymphadenopathy. Supple, full range of motion without nuchal rigidity, or vertebral point tenderness. No Meningismus. Chest/axilla: Normal chest wall appearance and motion. Nontender with no deformity. No lesions are appreciated. Cardiovascular: Regular rate and rhythm with a normal S1 and S2. No gallops, murmurs, or rubs. Normal PMI, no JVD. No pulse deficits. Respiratory: Lungs have equal breath sounds bilaterally, clear to auscultation and percussion. No rales, rhonchi or wheezes noted. No increased work of breathing, no retractions or nasal flaring. Abdomen/GI: Soft, non-tender, with normal bowel sounds. No distension or tympany. No guarding or rebound. No evidence of tenderness throughout. Back: No spinal tenderness. No costovertebral tenderness. Full range of motion. Skin: Warm, dry with normal turgor. Normal color with no rashes, no lesions, and no evidence of cellulitis. MS/ Extremity: Pulses equal, no cyanosis. Neurovascular intact. Full, normal range of motion. 20:51 Neuro: Orientation: is normal, Motor: is normal, moves all fours, Gait: is steady, at a normal pace, without difficulty. Vital Signs: 19:50 BP 155 / 98; Pulse 99; Resp 16 S; Temp 98.2(O); Pulse Ox 99% on R/A; Weight 84.37 kg bb (R); Height 5 ft. 3 in. (160.02 cm) (R); Pain 0/10; 20:48 Temp 100.0(O); ak1 19:50 Body Mass Index 32.95 (84.37 kg, 160.02 cm) bb MDM: 19:38 Patient medically screened. pm1 19:43 ED course: patient offered cough medication. Patient refused.. pm1 20:11 Data reviewed: vital signs. Data interpreted: Pulse oximetry: on room air is 99 %. pm1 Interpretation: normal. Counseling: I had a detailed discussion with the patient and/or guardian regarding: radiology results. 20:54 Counseling: I had a detailed discussion with the patient and/or guardian regarding: the pm1 historical points, exam findings, and any diagnostic results supporting the discharge/admit diagnosis, lab results, the need for outpatient follow up, to return to the emergency department if symptoms worsen or persist or if there are any questions or concerns that arise at home. 04/23 19:43 Order name: Flu; Complete Time: 20:44 pm1 04/23 19:43 Order name: Chest Pa And Lat (2 Views) XRAY; Complete Time: 20:11 pm1 Administered Medications: 20:59 Drug: Tylenol 1000 mg Route: PO; ak1 21:00 Follow up: Response: No adverse reaction ak1 Disposition: 04/24 06:20 Co-signature as Attending Physician, Balaji Vo MD I agree with the assessment and 4 plan of care. Disposition: 04/23/18 20:55 Discharged to Home. Impression: Influenza due to identified novel influenza A virus. - Condition is Stable. - Discharge Instructions: Fever, Adult, Influenza, Adult. - Prescriptions for Tamiflu 75 mg Oral Capsule - take 1 tablet by ORAL route every 12 hours for 5 days; 10 tablet. - Medication Reconciliation Form, Thank You Letter, Antibiotic Education, Prescription Opioid Use form. - Follow up: Emergency Department; When: As needed; Reason: Worsening of condition. Follow up: Private Physician; When: 2 - 3 days; Reason: Recheck today's complaints, Continuance of care, Re-evaluation by your physician. - Problem is new. - Symptoms have improved. Signatures: Dispatcher [employer] EDLyubov Merino, RN RN Mary Santana, RN RN tl1 Veronica Hamm RN RN ak1 Piero Nuñez, COUNTER POCKET TRIMMER COUNTER POCKET TRIMMER pm1 Balaji Vo, MD SMART tw4 Corrections: (The following items were deleted from the chart) 04/23 21:05 20:55 04/23/2018 20:55 Discharged to Home. Impression: Influenza due to identified ak1 novel influenza A virus. Condition is Stable. Forms are Medication Reconciliation Form, Thank You Letter, Antibiotic Education, Prescription Opioid Use. Follow up: Emergency Department; When: As needed; Reason: Worsening of condition. Follow up: Private Physician; When: 2 - 3 days; Reason: Recheck today's complaints, Continuance of care, Re-evaluation by your physician. Problem is new. Symptoms have improved. pm1
--- NOTE | 2018-04-23 20:55 | ER ---
Nurse's Notes [facility] Name: Adriana Patton Age: 47 yrs Sex: Female : 1970 Arrival Date: 04/23/2018 Time: 19:17 Bed 8 Private MD: Diagnosis: Influenza due to identified novel influenza A virus Presentation: 04/23 19:45 Presenting complaint: Patient states: she has been sick off and on since March with bb productive cough, fever, and congestion pt had pneumonia last year for 6 weeks and is concerned she has it again. Transition of care: patient was not received from another setting of care. Onset of symptoms was March 2018. Risk Assessment: Do you want to hurt yourself or someone else? Patient reports no desire to harm self or others. Initial Sepsis Screen: Does the patient meet any 2 criteria? No. Patient's initial sepsis screen is negative. Does the patient have a suspected source of infection? No. Patient's initial sepsis screen is negative. Care prior to arrival: None. 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 - Social history:: Smoking status: unknown. - Ebola Screening: : No symptoms or risks identified at this time. Screenin:08 Abuse screen: Denies threats or abuse. Denies injuries from another. Nutritional ak1 screening: No deficits noted. Tuberculosis screening: No symptoms or risk factors identified. Fall Risk None identified. Assessment: 20:06 General: Appears in no apparent distress. Behavior is calm, cooperative. Pain: ak1 Complains of pain in chest congestion. Neuro: No deficits noted. Cardiovascular: No deficits noted. Respiratory: Reports cough that is Airway is patent. Respiratory: Onset: The symptoms/episode began/occurred March . GI: No signs and/or symptoms were reported involving the gastrointestinal system. : No signs and/or symptoms were reported regarding the genitourinary system. EENT: Reports nasal congestion nasal discharge. Derm: No signs and/or symptoms reported regarding the dermatologic system. Musculoskeletal: No signs and/or symptoms reported regarding the musculoskeletal system. Vital Signs: 19:50 BP 155 / 98; Pulse 99; Resp 16 S; Temp 98.2(O); Pulse Ox 99% on R/A; Weight 84.37 kg bb (R); Height 5 ft. 3 in. (160.02 cm) (R); Pain 0/10; 20:48 Temp 100.0(O); ak1 19:50 Body Mass Index 32.95 (84.37 kg, 160.02 cm) bb ED Course: 19:17 Patient arrived in ED. es 19:37 Piero Nuñez NP is PHCP. pm1 19:37 Balaji Vo MD is Attending Physician. pm1 19:40 Veronica Hamm, ELVIN is Primary Nurse. ak1 19:50 Arm band placed on Patient placed in an exam room, on a stretcher, on pulse oximetry. bb 19:57 Chest Pa And Lat (2 Views) XRAY In Process Unspecified. EDMS 20:01 Triage completed. bb 20:08 Patient has correct armband on for positive identification. Bed in low position. Call ak1 light in reach. Side rails up X 1. Pulse ox on. NIBP on. 21:01 No provider procedures requiring assistance completed. Patient did not have IV access ak1 during this emergency room visit. Administered Medications: 20:59 Drug: Tylenol 1000 mg Route: PO; ak1 21:00 Follow up: Response: No adverse reaction ak1 Outcome: 20:55 Discharge ordered by . pm1 21:01 Discharged to home ambulatory. ak1 21:01 Condition: good 21:01 Discharge instructions given to patient, Instructed on discharge instructions, follow ak1 up and referral plans. no drinking with medication, no driving heavy equipment, medication usage, Demonstrated understanding of instructions, follow-up care, medications, Prescriptions given X 1. 21:05 Patient left the ED. ak1 Signatures: Dispatcher [employer] EDNV Adela Feldman Brenda, RN RN bb Veronica Hamm RN RN ak1 Marinas, Piero, WASHER CUTTER WASHER CUTTER pm1
[2018-04-23] MEDS ORDERED: ACETAMINOPHEN 500 MG TAB ONE (21:06)
== END 2018-04-23 21:05 | disposition home or self-care (01) ==
LOC: ER 19:09
DX: J10.1 Influenza due to other identified influenza virus with other respiratory manifestations (principal); Z88.5 Allergy status to narcotic agent; Z88.8 Allergy status to other drugs, medicaments and biological substances
CPT/HCPCS: 71046; 87804; 99284

== ENCOUNTER 2018-04-29 15:02 | Emergency (ER) | payer OTHER ==
--- OUTSIDE RECORDS SUMMARY | 2018-04-29 15:04 | XMS REPORT | Continuity of Care Document ---
[...] exam Buxbaum Other specified Active Problem 04/09/2017 Mratin Gay viral exanthemata Buxbaum Allergic urticaria Active [...] Orally Active 10 mg Orally Buxbaum Martin Gay Once a day 017 Buxbaum Ceftin 1 [...] Diastolic (mm Hg) 82 11/25/2014 Martin Gay [place] Systolic (mm Hg) 114 11/25/2014 Martin Gay [place] Encounters Location Location Encounter Encounter Reason Attending ADM DC Status Source Details Type Number For Provider Date Date Visit Martin Fischer dog bite [id number] 11/25 11/25 Martin Horton, [id number] /2014 OBDULIO Gay DO [id number] [address] 271 Martin Fischer dog bite [id number] 11/25 11/25 Martin Horton, [id number] /2014 OBDULIO Gay DO [id number] [place] 657 Martin Fischer Unknown [id number] 04/19 04/19 Martin Horton, [id number] /2016 OBDULIO Gay DO [id number] Clifford 780 Procedures Procedure Code Date Perfomer Comments Source
--- OUTSIDE RECORDS SUMMARY | 2018-04-29 15:04 | XMS REPORT ---
:1970 [facility] Providers Name Role Phone [...] Start End Date Status Dosage Date Lorazepam [facility] 33785-281 2 MG Orally TID Active 1 tablet 2-01 Wellbutrin SR [facility] 18493-334 200 MG Orally Active not defined Topamax [facility] 98001-912 25 MG Orally Active 1 tablet 6-30 twice a day (bid) Vital Signs Date/Time: August 22, 2016 BMI 30.11 Index Weight 170 lbs Height 63 in Temperature 98.5 F Cardiac Monitoring Heart Rate 78 /min Blood Pressure Diastolic 98 mm Hg Blood Pressure Systolic 144 mm Hg Results No Known Results Summary Purpose eClinicalWorks Submission
--- OUTSIDE RECORDS SUMMARY | 2018-04-29 15:05 | XMS REPORT ---
[...] Start End Date Status Dosage Date Cefdinir [facility] 37196768791 300 MG Orally Active 1 capsule Twice a day Results No Known Results Summary Purpose eClinicalWorks Submission
--- OUTSIDE RECORDS SUMMARY | 2018-04-29 15:05 | XMS REPORT ---
[...] Date Status Dosage System Date Loratadine NDC 67731361105 10 mg Orally Mar 05, Apr 02, Active 1 tablet Once a day 2016 2017 Levaquin ND 55266272387 500 mg Orally Active 1 tablet every day (qd) Benzonatate ND 12671085456 200 MG Orally Active 1 capsule Three times a as needed day prn cough Results No Known Results Summary Purpose eClinicalWorks Submission
--- OUTSIDE RECORDS SUMMARY | 2018-04-29 15:05 | XMS REPORT ---
:1970 [facility] Providers Name Role [...] End Status Dosage System Date Date Azithromycin [facility] NAMED [facility] [address]-94 250 MG Orally Active not defined Ceftin FORMERLY NAMED [facility] 15924757208 500 MG Orally Feb 25, Active 1 tablet Twice a day 2016 Ventolin HFA FORMERLY NAMED [facility] [address]-94 90 MCG/ACT Active 2 puffs as Inhalation every needed 4 hrs Lorazepam FORMER[facility] NAMED [facility] 29200471087 2 MG Orally TID Active 1 tablet Topamax FOR[facility] NAMED [facility] 96124311838 25 MG Orally Active 1 tablet twice a day (bid) Vital Signs Date/Time: Feb 25, 2017 BMI 33.12 Index Weight 187 lbs Height 63 in Temperature 98.3 F Cardiac Monitoring Heart Rate 84 /min Blood Pressure Diastolic 86 mm Hg Blood Pressure Systolic 134 mm Hg Results No Known Results Summary Purpose eClinicalWorks Submission
--- OUTSIDE RECORDS SUMMARY | 2018-04-29 15:05 | XMS REPORT ---
:1970 [facility] Providers Name Role [...] Date Status Dosage Date Wellbutrin SR [facility] 59825-10 200 MG Orally Active Unknown 22 Wellbutrin SR [facility] 86751-91 200 MG Orally Active Unknown Augmentin [facility] 00944-67 875-125 MG Active 1 tablet 86-12 Orally Twice a day with food Lorazepam [facility] 06509-65 2 MG Orally TID Active 1 tablet 22- Topamax [facility] 12025-95 100 MG Orally Active 1.5 tablet 28-30 [...]
--- OUTSIDE RECORDS SUMMARY | 2018-04-29 15:05 | XMS REPORT ---
:1970 [facility] Providers Name Role Phone [...] End Date Status Dosage Date Lorazepam [facility] 37480-98 2 MG Orally TID Active 1 tablet at 22-01 bedtime as needed Xanax [facility] 60019-75 0.5 MG Orally Active 1 tablet 55-01 Three times a day Augmentin [facility] 89885-56 875-125 MG Active 1 tablet 86-12 Orally Twice a day with food Augmentin [facility] 34292-63 875-125 MG Nov 25Dec 25, Active 1 tablet 86-12 Orally Twice a 2014 2014 day with food Topamax [facility] 49950-85 200 MG Orally Active 1 tablet 43-30 Once a day Wellbutrin SR [facility] 69754-14 200 MG Orally Active Unknown Social History [...]
[2018-04-29 16:02] LABS: Absolute Lymphocytes (CBC) 1.8 K/uL (0.7-4.9); Absolute Monocytes 0.7 K/uL (0.1-1.3); Absolute Neutrophil 3.6 K/uL (1.8-8.0); Basophils % 0.9 % (0-1.3); Eosinophils % 1.9 % (0-4.4); Hematocrit 43.7 % (36.0-45.0); Lymphocytes % 28.9 % (15.3-44.8); MPV 9.3 fL (7.6-11.3); Monocytes % 11.6 % (3.3-12.3); RBC Red Blood Cell Count 4.63 M/uL (3.86-4.86)
[2018-04-29] MEDS ORDERED: LEVALBUTEROL 1.25 MG/3 ML NEB ONE (16:03)
--- NOTE | 2018-04-29 16:23 | RAD REPORT ---
EXAM DESCRIPTION: RAD - Chest Pa And Lat (2 Views) - 04/29/2018 4:17 pm CLINICAL HISTORY: cough, fever Chest pain. COMPARISON: Chest Pa And Lat (2 Views) dated 04/23/2018; Chest Single View dated 01/07/2018; Chest Pa And Lat (2 Views) dated 02/18/2017 FINDINGS: The lungs are clear. The heart is normal in size. No displaced fractures. IMPRESSION: No acute or concerning finding suspected.
[2018-04-29 16:29] LABS: Albumin 3.7 g/dL (3.4-5.0); Bilirubin Total 0.5 mg/dL (0.2-1.0); Protein, Total 8.1 g/dL (6.4-8.2)
--- NOTE | 2018-04-29 16:53 | RAD REPORT ---
EXAM DESCRIPTION: CT - CTFBWCON CLINICAL HISTORY: right sided facial swelling Influenza, facial swelling. COMPARISON: Head Brain Wo Cont dated 01/07/2018 TECHNIQUE: Axial 2 mm thick images of the face were obtained with sagittal and coronal reconstructio n images. All CT scans are performed using dose optimization technique as appropriate and may include automated exposure control or mA/KV adjustment according to patient size. FINDINGS: No acute facial bone fracture is seen.The mandible is intact. The globes and orbital contents are grossly unremarkable.Mild mucoperiosteal thickening is seen in ehsan th maxillary antra. 15 x 10 mm lymph node is seen anterior to the right garage construction equipment mechanic muscle. IMPRESSION: Mildly prominent right-sided garage construction equipment mechanic space lymph node.No abscess is seen. Mild paranasal sinus mucoperiosteal thickening.
[2018-04-29] MEDS ORDERED: NA CHLORIDE 0.9% 1,000 ML ONE (17:22)
--- NOTE | 2018-04-29 17:51 | ER ---
Nurse's Notes [facility] Name: Adriana Patton Age: 47 yrs Sex: Female : 1970 Arrival Date: 04/29/2018 Time: 15:04 Bed 13 Private MD: Diagnosis: facial cellulitis;acute bronchitis Presentation: 04/29 15:10 Presenting complaint: Patient states: i was here on and diagnosed with the tw2 flu, i started having wheezing and the urgent care started me on a z=pack and now i have a hard lump on the right side of my face and i feel like i am still wheezing. Transition of care: patient was not received from another setting of care. Onset of symptoms was April 29, 2018. Risk Assessment: Do you want to hurt yourself or someone else? Patient reports no desire to harm self or others. Initial Sepsis Screen: Does the patient meet any 2 criteria? No. Patient's initial sepsis screen is negative. Does the patient have a suspected source of infection? No. Patient's initial sepsis screen is negative. Care prior to arrival: None. 15:10 Method Of Arrival: Ambulatory tw2 15:10 Acuity: NENA 3 tw2 Triage Assessment: 15:13 General: Appears in no apparent distress. obese, Behavior is calm, cooperative, tw2 appropriate for age. Pain: Complains of pain in face. 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 - Social history:: Smoking status: Patient/guardian denies using tobacco. - Ebola Screening: : Patient denies travel to an Ebola-affected area in the 21 days before illness onset. Screenin:26 Abuse screen: Denies threats or abuse. Denies injuries from another. Nutritional bp screening: No deficits noted. Tuberculosis screening: No symptoms or risk factors identified. Fall Risk None identified. Assessment: 15:15 General: Appears in no apparent distress. comfortable, obese, Behavior is cooperative, bp appropriate for age, anxious. Pain: Complains of pain in face. Neuro: Level of Consciousness is awake, alert, obeys commands, Oriented to person, place, time, situation, Appropriate for age. Cardiovascular: No deficits noted. Respiratory: Airway is patent Respiratory effort is even, unlabored, Respiratory pattern is regular, symmetrical. GI: No signs and/or symptoms were reported involving the gastrointestinal system. : No signs and/or symptoms were reported regarding the genitourinary system. EENT: No deficits noted. Derm: No deficits noted. Musculoskeletal: Circulation, motion, and sensation intact. Range of motion: intact in all extremities. 17:00 Reassessment: NEB TREATMENT IN PROCESS, VS STABLE ON MONITOR. bp 18:27 Reassessment: PT D/C HOME AMBULATORY, DX WITH FACIAL CELLULITIS AND BRONCHITIS. bp Vital Signs: 15:13 BP 171 / 99; Pulse 68; Resp 17; Temp 97.4(TE); Pulse Ox 100% on R/A; Weight 84.37 kg tw2 (R); Height 5 ft. 3 in. (160.02 cm) (R); Pain 2/10; 17:16 BP 141 / 83; Pulse 97; Resp 16; Pulse Ox 99% ; bp 17:54 BP 126 / 77; Pulse 92; Resp 14; Pulse Ox 100% ; bp 15:13 Body Mass Index 32.95 (84.37 kg, 160.02 cm) tw2 ED Course: 15:04 Patient arrived in ED. rg4 15:12 Triage completed. tw2 15:12 Arm band placed on. tw2 15:28 Sid Goncalves, RN is Primary Nurse. bp 15:30 Khai Thakkar PA is PHCP. jmm 15:30 Donaldo Chao MD is Attending Physician. jmm 15:56 Initial lab(s) drawn, by me, sent to lab. Inserted saline lock: 22 gauge in right jb1 antecubital area, using aseptic technique. Blood collected. 16:08 Radiology exam delayed due to lab results not completed at this time. (BUN/Creatinine) vm2 test not completed at this time. 16:15 Chest Pa And Lat (2 Views) XRAY In Process Unspecified. EDMS 16:26 Patient has correct armband on for positive identification. Bed in low position. Call bp light in reach. Side rails up X2. Adult w/ patient. 16:35 Patient moved to [place] via wheelchair. sj 16:46 CT completed. Patient tolerated procedure well. Patient moved back from [place]. mi 16:47 CT Facial Bones W/ Con \T\ Mpr In Process Unspecified. EDMS 18:00 Rosalee Thompson MD is Referral Physician. [facility] 18:28 No provider procedures requiring assistance completed. IV discontinued, intact, bp bleeding controlled, No redness/swelling at site. Pressure dressing applied. Administered Medications: 15:58 Drug: Xopenex (3) 1.25 mg Route: Inhalation; bp 17:10 Drug: NS 0.9% 1000 ml Route: IV; Rate: 1 bolus; Site: right antecubital; bp 17:55 Follow up: IV Status: Completed infusion; IV Intake: 1000ml bp Intake: 17:55 IV: 1000ml; Total: 1000ml. bp Outcome: 17:50 Discharge ordered by . [facility] 18:28 Discharged to home ambulatory, with family. bp 18:28 Condition: stable 18:28 Discharge instructions given to patient, Instructed on discharge instructions, follow up and referral plans. medication usage, Demonstrated understanding of instructions, follow-up care, medications, Prescriptions given X 2. 18:29 Patient left the ED. bp Signatures: Dispatcher [employer] EDMS London Vazquez jb1 Khai Thakkar PA PA jmm Jones, Susan sj Wise, Tara, ELVIN RN tw2 Farhana Sotomayor4 Vernon Morel Victoria 2 Sid Goncalves, ELVIN RN bp Corrections: (The following items were deleted from the chart) 15:13 15:10 Presenting complaint: Patient states: i was here on and diagnosed with tw2 the flu, i started having wheezing and the urgent care started me on a z=pack and now i have a hard lump on the right side of my face tw2
--- NOTE | 2018-04-29 17:52 | EDPHYS ---
Physician Documentation [facility] Name: Adriana Patton Age: 47 yrs Sex: Female : 1970 Arrival Date: 04/29/2018 Time: 15:04 Bed 13 Private MD: ED Physician Donaldo Chao HPI: 04/29 15:31 This 47 yrs old Female presents to ER via Ambulatory with complaints of jmm Wheezing, Rash. 15:31 The patient or guardian reports cough. Onset: The symptoms/episode began/occurred 6 jmm day(s) ago. 15:31 Modifying factors: The symptoms are alleviated by nothing. the symptoms are aggravated jmm by nothing. 15:31 This is a 47 year old female with a history of renal disease presents to the ED with jmm complaints cough, wheezing after diagnosis of influenza. Patient states she developed right sided facial swelling and redness. Patient is currently on azithromycin. . 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 - Social history:: Smoking status: Patient/guardian denies using tobacco. - Ebola Screening: : Patient denies travel to an Ebola-affected area in the 21 days before illness onset. ROS: 15:31 Constitutional: Negative for fever, chills, and weight loss. jmm 15:31 Respiratory: Positive for cough, wheezing. 15:31 Skin: Positive for rash. 15:31 All other systems are negative. Exam: 15:31 Constitutional: This is a well developed, well nourished patient who is awake, alert, jmm and in no acute distress. 15:31 Eyes: EOMI, no conjunctival erythema appreciated Chest/axilla: Normal chest wall appearance and motion. Cardiovascular: Regular rate and rhythm. No edema appreciated 15:31 Abdomen/GI: Non distended, soft Back: Normal ROM 15:31 Head/face: erythema noted to the right cheek. 15:31 Respiratory: the patient does not display signs of respiratory distress, Respirations: normal, Breath sounds: wheezing: that is mild, is scattered. 15:31 Skin: mild erythema noted to the right cheek. 15:31 Neuro: Orientation: appropriate for stated age, Mentation: is normal, Memory: is normal. 15:31 Psych: Behavior/mood is pleasant, cooperative. Vital Signs: 15:13 BP 171 / 99; Pulse 68; Resp 17; Temp 97.4(TE); Pulse Ox 100% on R/A; Weight 84.37 kg tw2 (R); Height 5 ft. 3 in. (160.02 cm) (R); Pain 2/10; 17:16 BP 141 / 83; Pulse 97; Resp 16; Pulse Ox 99% ; bp 17:54 BP 126 / 77; Pulse 92; Resp 14; Pulse Ox 100% ; bp 15:13 Body Mass Index 32.95 (84.37 kg, 160.02 cm) tw2 MDM: 15:31 Patient medically screened. [facility] 17:50 Data reviewed: vital signs, nurses notes. Counseling: I had a detailed discussion with tessa the patient and/or guardian regarding: the historical points, exam findings, and any diagnostic results supporting the discharge/admit diagnosis, lab results, radiology results, the need for outpatient follow up, to return to the emergency department if symptoms worsen or persist or if there are any questions or concerns that arise at home. ED course: Patient is alert and non toxic in appearance in the ED. Lungs CTA on reexamination. Patient has tenderness on palpation of the right cheek. Patient will be administered oral antibiotics. Patient given strict return precautions. Patient understood and agrees with the plan of care. . 04/29 15:35 Order name: CBC with Diff; Complete Time: 16:05 [facility] 04/29 15:35 Order name: CMP; Complete Time: 16:50 [facility] 04/29 15:35 Order name: Test, Serum; Complete Time: 17:07 [facility] 04/29 15:35 Order name: Chest Pa And Lat (2 Views) XRAY; Complete Time: 16:50 [facility] 04/29 15:35 Order name: CT Facial Bones W/ Con \T\ Mpr; Complete Time: 17:07 [facility] 04/29 15:35 Order name: Saline Lock; Complete Time: 15:56 [facility] Administered Medications: 15:58 Drug: Xopenex (3) 1.25 mg Route: Inhalation; bp 17:10 Drug: NS 0.9% 1000 ml Route: IV; Rate: 1 bolus; Site: right antecubital; bp 17:55 Follow up: IV Status: Completed infusion; IV Intake: 1000ml bp Disposition: 18:54 Co-signature as Attending Physician, Donaldo Chao MD Available for consultation at ps1 all times. . Disposition: 04/29/18 17:50 Discharged to Home. Impression: facial cellulitis, acute bronchitis. - Condition is Stable. - Discharge Instructions: Acute Bronchitis, Adult, Cellulitis, Adult. - Prescriptions for Clindamycin HCl 300 mg Oral Capsule - take 1 capsule by ORAL route every 6 hours for 10 days; 40 capsule. Albuterol Sulfate 90 mcg/actuation - inhale 1-2 puff by INHALATION route every 4-6 hours; 1 Inhaler. - Medication Reconciliation Form, Thank You Letter, Antibiotic Education, Prescription Opioid Use form. - Follow up: Rosalee Thompson MD; When: 1 - 2 days; Reason: Recheck today's complaints, Continuance of care, Re-evaluation by your physician. Signatures: Dispatcher [employer] EDMS Khai Thakkar PA PA [facility] Kindra Campbell RN RN tw2 Sid Goncalves RN RN Donaldo Toribio MD MD ps1 Corrections: (The following items were deleted from the chart) 17:41 15:31 Onset: The symptoms/episode began/occurred 5 day([place] ago[place] [facility] [place] 17:50 04/29/2018 17:50 Discharged to Home. Impression: facial cellulitis; acute [facility] bronchitis. Condition is Stable. Forms are Medication Reconciliation Form, Thank You Letter, Antibiotic Education, Prescription Opioid Use. Follow up: Private Physician; When: 2 - 3 days; Reason: Recheck today's complaints, Continuance of care, Re-evaluation by your physician. [facility] 18:29 18:00 04/29/2018 17:50 Discharged to Home. Impression: facial cellulitis; acute bp bronchitis. Condition is Stable. Discharge Instructions: Acute Bronchitis, Adult, Cellulitis, Adult. Prescriptions for Clindamycin HCl 300 mg Oral Capsule - take 1 capsule by ORAL route every 6 hours for 10 days; 40 capsule, Albuterol Sulfate 90 mcg/actuation - inhale 1-2 puff by INHALATION route every 4-6 hours; 1 Inhaler. and Forms are Medication Reconciliation Form, Thank You Letter, Antibiotic Education, Prescription Opioid Use. Follow up: Rosalee Thompson; When: 1 - 2 days; Reason: Recheck today's complaints, Continuance of care, Re-evaluation by your physician. tessa
== END 2018-04-29 18:29 | disposition home or self-care (01) ==
LOC: ER 15:02
DX: J20.9 Acute bronchitis, unspecified (principal); L03.211 Cellulitis of face; N28.9 Disorder of kidney and ureter, unspecified; F43.10 Post-traumatic stress disorder, unspecified; Z88.5 Allergy status to narcotic agent; Z88.8 Allergy status to other drugs, medicaments and biological substances
CPT/HCPCS: 36415; 70487; 71046; 76377; 80053; 84703; 85025; 96360; 99285; J7030; Q9967

== ENCOUNTER 2018-09-18 12:57 | Emergency (ER) | payer OTHER ==
--- OUTSIDE RECORDS SUMMARY | 2018-09-18 13:01 | XMS REPORT ---
[...] Start End Date Status Dosage Date Cefdinir [facility] [place] [id number] 300 MG Orally Active 1 capsule Twice a day Results No Known Results Summary Purpose eClinicalWorks Submission
--- OUTSIDE RECORDS SUMMARY | 2018-09-18 13:01 | XMS REPORT ---
:1970 [facility] Team Providers Name Role Phone [...] End Date Status Dosage Date Lorazepam MEDISPAN 37858-54 2 MG Orally TID Active 1 tablet at 22-01 bedtime as needed Xanax MEDISPAN 37572-04 0.5 MG Orally Active 1 tablet 55-01 Three times a day Augmentin MEDISPAN 51179-08 875-125 MG Active 1 tablet 86-12 Orally Twice a day with food Augmentin MEDISPAN 43743-01 875-125 MG Nov 25Dec 25, Active 1 tablet 86-12 Orally Twice a 2014 2014 day with food Topamax MEDISPAN 53520-60 200 MG Orally Active 1 tablet 43-30 Once a day Wellbutrin SR MEDISPAN 78955-86 200 MG Orally Active Unknown Social History [...]
--- OUTSIDE RECORDS SUMMARY | 2018-09-18 13:01 | XMS REPORT | Continuity of Care Document ---
:1970 Author Organization [employer] Care Team Providers Name Role Phone [employer] Unavailable Unavailable Problems Problem Status Onset Classification Date Comments Source Date Reported Body mass index of Active Problem 04/09/2017 [...] Other drug allergy Active Problem 04/09/2017 Martin E [place] Generalized anxiety Active Problem 04/09/2017 Martin Gay disorder [place] Dermatophytosis of Active Problem 04/09/2017 Martin Gay body [place] Gout Active Problem 04/09/2017 Martin Gay [place] Major depressive Active Problem 04/09/2017 Martin Gay disorder, recurrent [place] episode Dizziness Active Diagnosis 08/24/2016 Martin Gay [place] SOB Active Diagnosis 08/24/2016 Martin Gay [place] Pneumonia due to Active Diagnosis 02/26/2017 Martin Gay infectious [place] organism, unspecified laterality, unspecified part of lung Cellulitis of leg Active Diagnosis 11/27/2014 Martin E [place] Unspecified ankle Active Diagnosis 11/27/2014 Martin E and foot joint [place] derangement Injury, other [...] Martin Gay twice a day [place] (bid) Azithromycin not Orally Active 250 MG Orally [...] Three times a [place] day prn cough Cefdinir 1 capsule Orally Active 300 MG Orally [place] Martin Gay Twice a day [place] Xanax 1 tablet Orally Active 0.5 MG Orally [place] Martin Gay Three times a [place] day Augmentin 1 tablet Orally Active 875-125 MG [place] Martin Gay Orally Twice a [place] day with food Topamax 1 tablet Orally Active 200 MG Orally [place] Martin E Once a day [place] Topamax 1.5 tablet Orally Active 100 MG Orally [place] Martin E twice a day [place] (bid) Allergies, Adverse [...] Reaction Available Reaction 7 E [place] Immunizations No Data Provided for This Section Results No Data Provided for This Section Pathology Reports No Data Provided for This Section Diagnostic Reports No Data Provided for This Section Consultation Notes No Data Provided for This Section Discharge Summaries No Data Provided for This Section History and Physicals No Data Provided for This Section Vital Signs Vital Sign Value Date Comments Source Weight 187 02/25/2017 Martin E [place] Height 63 02/25/2017 Martin E [place] Temperature Oral (F) 98.3 F 02/25/2017 Martin E [place] Heart Rate 84 02/25/2017 Martin E [...] [place] Systolic (mm Hg) 130 04/19/2016 Martin Horton Weight 142 11/25/2014 Martin Horton Height 63 11/25/2014 Martin Horton Temperature Oral (F) 97.9 F 11/25/2014 Martin Horton Heart Rate 78 11/25/2014 Martin Horton Diastolic (mm Hg) 82 11/25/2014 Martin Horton Systolic (mm Hg) 114 11/25/2014 Martin Horton Encounters Location Location Encounter Encounter Reason Attending ADM DC Status Source Details Type Number For Provider Date Date Visit Martin Fischer dog bite [id number] 11/25 11/25 Martin Horton, [id number] /2014 E OBDULIO HERRMANN [id number] [place] 271 Martin Fischer dog bite [id number] 11/25 11/25 Martin Milesmer, [id number] /2014 OBDULIO Gay DO [id number] [place] 657 Martin Fischer Unknown [id number] 04/19 04/19 Martin Milesmer, [id number] /2016 E OBDULIO HERRMANN [id number] [place] 780 Procedures No Data Provided for This Section Assessment and Plan No Data Provided for This Section Plan of Care No Data Provided for This Section Social History Social History Date Source Social History ElementQualifiersDate Reported 04/19/2016 Martin Horton Tobacco Use: . Are you a: former smoker Apr 19, 2016 Use of recreational / street drugs? . Answer: No Apr 19, 2016 Marital Status: . Apr 19, 2016 Do you exercise? . Answer: No Apr 19, 2016 Do you drink alcohol? . Status: No Apr 19, 2016 Family History Value Date Source QualifierDescriptionCommentDate Reported 04/21/2016 Martin Horton Maternal Grandmother diabetes Apr 19, 2016 Paternal [...] Other: Comment not available Apr 19, 2016 QualifierDescriptionCommentDate Reported 11/27/2014 Martin Horton Maternal Grandmother diabetes Nov 25, 2014 Paternal [...] Other: Comment not available Nov 25, 2014 Advance Directives No Data Provided for This Section Functional Status No Data Provided for This Section
--- OUTSIDE RECORDS SUMMARY | 2018-09-18 13:01 | XMS REPORT ---
[...] Date Status Dosage System Date Loratadine NDC 71228218157 10 mg Orally Mar 05, Apr 02, Active 1 tablet Once a day 2016 2017 Levaquin ND 00655074880 500 mg Orally Active 1 tablet every day (qd) Benzonatate ND 18686896034 200 MG Orally Active 1 capsule Three times a as needed day prn cough Results No Known Results Summary Purpose eClinicalWorks Submission
--- OUTSIDE RECORDS SUMMARY | 2018-09-18 13:01 | XMS REPORT ---
:1970 [facility] Team Providers Name Role [...] End Status Dosage System Date Date Azithromycin [facility] [address]-61 250 MG Orally Active not defined Ceftin [facility] 32747135947 500 MG Orally Feb 25, Active 1 tablet Twice a day 2016 Ventolin HFA [facility] [address]-96 90 MCG/ACT Active 2 puffs as Inhalation every needed 4 hrs Lorazepam [facility] 71731693522 2 MG Orally TID Active 1 tablet Topamax [facility] 53913730090 25 MG Orally Active 1 tablet twice a day (bid) Vital Signs Date/Time: Feb 25, 2017 BMI 33.12 Index Weight 187 lbs Height 63 in Temperature 98.3 F Cardiac Monitoring Heart Rate 84 /min Blood Pressure Diastolic 86 mm Hg Blood Pressure Systolic 134 mm Hg Results No Known Results Summary Purpose eClinicalWorks Submission
--- OUTSIDE RECORDS SUMMARY | 2018-09-18 13:01 | XMS REPORT ---
:1970 [facility] Team Providers Name Role Phone [...] End Date Status Dosage Date Lorazepam [facility] 32560-176 2 MG Orally TID Active 1 tablet 2-01 Wellbutrin SR [facility] 95351-977 200 MG Orally Active not defined Topamax [facility] 54625-217 25 MG Orally Active 1 tablet 6-30 twice a day (bid) Vital Signs Date/Time: August 22, 2016 BMI 30.11 Index Weight 170 lbs Height 63 in Temperature 98.5 F Cardiac Monitoring Heart Rate 78 /min Blood Pressure Diastolic 98 mm Hg Blood Pressure Systolic 144 mm Hg Results No Known Results Summary Purpose eClinicalWorks Submission
--- OUTSIDE RECORDS SUMMARY | 2018-09-18 13:02 | XMS REPORT ---
:1970 [facility] Providers Name [...] Date Status Dosage Date Wellbutrin SR MEDISPAN 76333-46 200 MG Orally Active Unknown 22 Wellbutrin SR MEDISPAN 74441-56 200 MG Orally Active Unknown Augmentin MEDISPAN 19967-96 875-125 MG Active 1 tablet 86-12 Orally Twice a day with food Lorazepam MEDISPAN 48410-85 2 MG Orally TID Active 1 tablet 22- Topamax MEDISPAN 51290-94 100 MG Orally Active 1.5 tablet 28-30 [...]
--- NOTE | 2018-09-18 14:01 | RAD REPORT ---
EXAM DESCRIPTION: RAD - Knee Left 3 View - 09/18/2018 1:56 pm CLINICAL HISTORY: PAIN Fall, left knee pain COMPARISON: No comparisons FINDINGS: No fracture, dislocation or joint effusion.
[2018-09-18] MEDS ORDERED: TETANUS & DIPHTHERIA TOX,ADULT 0.5 ML VIAL ONE (14:47)
--- NOTE | 2018-09-18 15:34 | ER ---
Nurse's Notes [facility] Name: Adriana Patton Age: 48 yrs Sex: Female : 1970 Arrival Date: 09/18/2018 Time: 13:03 Bed 20 Private MD: Diagnosis: Pain in left knee;Pain in left hip;Fall on same level, unspecified Presentation: 09/18 13:04 Transition of care: patient was not received from another setting of care. Onset of la1 symptoms was September 18, 2018. Risk Assessment: Do you want to hurt yourself or someone else? Patient reports no desire to harm self or others. Initial Sepsis Screen: Does the patient meet any 2 criteria? No. Patient's initial sepsis screen is negative. Does the patient have a suspected source of infection? No. Patient's initial sepsis screen is negative. Care prior to arrival: None. 13:04 Method Of Arrival: Wheelchair la1 13:04 Acuity: NENA 4 la1 13:05 Presenting complaint: Patient states: I fell on my left knee about 0945 on to a hard la1 floor. 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 tw2 Historical: - Allergies: 13:05 Allopurinol; la1 13:05 Codeine; la1 - PMHx: 13:05 50% kidney function; born with defect with kidneys; Depression; possible la1 fibromyalgia; PTSD; Vertigo; - PSHx: 13:39 reconstructive facial surgery; left ankle; tw2 - Immunization history:: Adult Immunizations up to date. - Social history:: Smoking status: Patient/guardian denies using tobacco. - Ebola Screening: : No symptoms or risks identified at this time. Screenin:35 Abuse screen: Denies threats or abuse. Nutritional screening: No deficits noted. tw2 Tuberculosis screening: No symptoms or risk factors identified. Fall Risk None identified. Assessment: 13:37 General: Appears in no apparent distress. obese, Behavior is calm, cooperative, tw2 appropriate for age. Pain: Complains of pain in left knee. Neuro: Level of Consciousness is awake, alert, obeys commands, Oriented to person, place, time, situation. Cardiovascular: Patient's skin is warm and dry. Respiratory: Airway is patent Respiratory effort is even, unlabored, Respiratory pattern is regular, symmetrical. GI: No signs and/or symptoms were reported involving the gastrointestinal system. : No signs and/or symptoms were reported regarding the genitourinary system. EENT: No signs and/or symptoms were reported regarding the EENT system. Derm: Bruising that is on left knee light purple bruising and small amount of swelling noted. Musculoskeletal: Range of motion: intact in all extremities, Swelling present in left knee. 15:19 Reassessment: Patient appears in no apparent distress at this time. No changes from tw2 previously documented assessment. Patient and/or family updated on plan of care and expected duration. Pain level reassessed. Patient is alert, oriented x 3, equal unlabored respirations, skin warm/dry/pink. 15:47 Reassessment: Patient appears in no apparent distress at this time. Patient and/or tw2 family updated on plan of care and expected duration. Pain level reassessed. Patient is alert, oriented x 3, equal unlabored respirations, skin warm/dry/pink. Vital Signs: 13:06 BP 150 / 80; Pulse 86; Resp 16; Temp 98.6; Pulse Ox 98% on R/A; Weight 84.37 kg; Height la1 5 ft. 3 in. (160.02 cm); 15:17 BP 143 / 78; Pulse 59; Resp 17; Pulse Ox 100% on R/A; tw2 15:47 BP 136 / 78; Pulse 77; Resp 17; Pulse Ox 99% on R/A; tw2 13:06 Body Mass Index 32.95 (84.37 kg, 160.02 cm) la1 ED Course: 13:03 Patient arrived in ED. as 13:04 Triage completed. la1 13:05 Arm band placed on right wrist. la1 13:22 Kimberli Chow FNP-C is PHCP. snw 13:22 Luan Salcido MD is Attending Physician. snw 13:25 Bed in low position. Call light in reach. Adult w/ patient. Pulse ox on. NIBP on. tw2 13:35 Kindra Campbell RN is Primary Nurse. tw2 13:56 Knee Left 3 View XRAY In Process Unspecified. EDMS 15:07 X-ray completed. Patient tolerated procedure well. Patient moved to radiology via ml wheelchair. Patient moved back from radiology. 15:09 Hip Left 2 View XRAY In Process Unspecified. EDMS 15:47 No provider procedures requiring assistance completed. Patient did not have IV access tw2 during this emergency room visit. Administered Medications: 14:36 Drug: Tetanus-Diphtheria Toxoid Adult 0.5 ml {[employer]ior [employer] Developer: [employer]. Exp: tw2 05/30/2020. Lot #: [id number]. } Route: IM; Site: right deltoid; 14:58 Follow up: Response: No adverse reaction tw2 Outcome: 15:33 Discharge ordered by MD. coon 15:47 Discharged to home ambulatory, with significant other. tw2 15:47 Condition: stable 15:47 Discharge instructions given to patient, significant other, Instructed on discharge instructions, follow up and referral plans. Demonstrated understanding of instructions, follow-up care. 15:48 Patient left the ED. tw2 Signatures: Dispatcher [employer] EDMO Kimberli Chow, SPIRAL GEAR GENERATOR-C SPIRAL GEAR GENERATOR-Csnw [place] Melissa ml Attema, Lee, RN RN la1 Kindra Campbell RN RN tw2
--- NOTE | 2018-09-18 15:34 | EDPHYS ---
Physician Documentation [facility] Name: Adriana Patton Age: 48 yrs Sex: Female : 1970 Arrival Date: 09/18/2018 Time: 13:03 Bed 20 Private MD: ED Physician Luan Salcido HPI: 09/18 15:36 This 48 yrs old Female presents to ER via Wheelchair with complaints of Knee snw Injury. 15:36 Onset: The symptoms/episode began/occurred suddenly, just prior to arrival. The patient snw has not experienced similar symptoms in the past. The patient has not recently seen a physician. pt slipped and fell directly on left knee, felt pain from knee to hip. MEDIA AID: 13:39 LMP N/A - . tw2 Historical: - Allergies: 13:05 Allopurinol; la1 13:05 Codeine; la1 - PMHx: 13:05 50% kidney function; born with defect with kidneys; Depression; possible la1 fibromyalgia; PTSD; Vertigo; - PSHx: 13:39 reconstructive facial surgery; left ankle; tw2 - Immunization history:: Adult Immunizations up to date. - Social history:: Smoking status: Patient/guardian denies using tobacco. - Ebola Screening: : No symptoms or risks identified at this time. ROS: 15:35 Constitutional: Negative for fever, chills, and weight loss, Eyes: Negative for injury, snw pain, redness, and discharge, ENT: Negative for injury, pain, and discharge, Neck: Negative for injury, pain, and swelling, Cardiovascular: Negative for chest pain, palpitations, and edema, Respiratory: Negative for shortness of breath, cough, wheezing, and pleuritic chest pain, Abdomen/GI: Negative for abdominal pain, nausea, vomiting, diarrhea, and constipation, Back: Negative for injury and pain, : Negative for injury, bleeding, discharge, and swelling, Skin: Negative for injury, rash, and discoloration, Neuro: Negative for headache, weakness, numbness, tingling, and seizure. 15:35 Psych: Negative for depression, anxiety, suicide ideation, homicidal ideation, and hallucinations. 15:35 MS/extremity: Positive for injury or acute deformity, pain, of the left leg. Exam: 14:14 Constitutional: This is a well developed, well nourished patient who is awake, alert, snw and in no acute distress. Head/Face: Normocephalic, atraumatic. Eyes: Pupils equal round and reactive to light, extra-ocular motions intact. Lids and lashes normal. Conjunctiva and sclera are non-icteric and not injected. Cornea within normal limits. Periorbital areas with no swelling, redness, or edema. ENT: Nares patent. No nasal discharge, no septal abnormalities noted. Tympanic membranes are normal and external auditory canals are clear. Oropharynx with no redness, swelling, or masses, exudates, or evidence of obstruction, uvula midline. Mucous membranes moist. Neck: Trachea midline, no thyromegaly or masses palpated, and no cervical lymphadenopathy. Supple, full range of motion without nuchal rigidity, or vertebral point tenderness. No Meningismus. Chest/axilla: Normal chest wall appearance and motion. Nontender with no deformity. No lesions are appreciated. Cardiovascular: Regular rate and rhythm with a normal S1 and S2. No gallops, murmurs, or rubs. Normal PMI, no JVD. No pulse deficits. Respiratory: Lungs have equal breath sounds bilaterally, clear to auscultation and percussion. No rales, rhonchi or wheezes noted. No increased work of breathing, no retractions or nasal flaring. Abdomen/GI: Soft, non-tender, with normal bowel sounds. No distension or tympany. No guarding or rebound. No evidence of tenderness throughout. Back: No spinal tenderness. No costovertebral tenderness. Full range of motion. Skin: Warm, dry with normal turgor. Normal color with no rashes, no lesions, and no evidence of cellulitis. Neuro: Awake and alert, GCS 15, oriented to person, place, time, and situation. Cranial nerves II-XII grossly intact. Motor strength 5/5 in all extremities. Sensory grossly intact. Cerebellar exam normal. Normal gait. Psych: Awake, alert, with orientation to person, place and time. Behavior, mood, and affect are within normal limits. 14:14 Skin: Warm, dry with normal turgor. Normal color with no rashes, no lesions, and no evidence of cellulitis. Abrasion to left knee 14:14 Musculoskeletal/extremity: Extremities: grossly normal except: noted in the left leg: decreased ROM, pain, Circulation is intact in all extremities. Sensation intact. Compartment Syndrome exam of affected extremity: is normal. Vital Signs: 13:06 BP 150 / 80; Pulse 86; Resp 16; Temp 98.6; Pulse Ox 98% on R/A; Weight 84.37 kg; Height la1 5 ft. 3 in. (160.02 cm); 15:17 BP 143 / 78; Pulse 59; Resp 17; Pulse Ox 100% on R/A; tw2 15:47 BP 136 / 78; Pulse 77; Resp 17; Pulse Ox 99% on R/A; tw2 13:06 Body Mass Index 32.95 (84.37 kg, 160.02 cm) la1 MDM: 13:32 Patient medically screened. snw 15:35 Data reviewed: vital signs, nurses notes. Data interpreted: Pulse oximetry: on room air snw is 100 %. Interpretation: normal. Counseling: I had a detailed discussion with the patient and/or guardian regarding: the historical points, exam findings, and any diagnostic results supporting the discharge/admit diagnosis, the presence of at least one elevated blood pressure reading (>120/80) during this emergency department visit, radiology results, the need for outpatient follow up, to return to the emergency department if symptoms worsen or persist or if there are any questions or concerns that arise at home. Special discussion: I have referred the patient to see his PCP for further evaluation of high blood pressure. Based on the history and exam findings, there is no indication for further emergent testing or inpatient evaluation. I discussed with the patient/guardian the need to see the orthopedic surgeon for further evaluation of the symptoms. I discussed with the patient/guardian the need to see the primary care provider for further evaluation of the symptoms. 09/18 13:07 Order name: Knee Left 3 View XRAY; Complete Time: 14:02 la1 09/18 14:14 Order name: Hip Left 2 View XRAY; Complete Time: 16:03 snw Administered Medications: 14:36 Drug: Tetanus-Diphtheria Toxoid Adult 0.5 ml {Company Marker: [employer]. Exp: tw2 05/30/2020. Lot #: [id number]. } Route: IM; Site: right deltoid; 14:58 Follow up: Response: No adverse reaction tw2 Disposition: 16:25 Co-signature as Attending Physician, Luan Salcido MD. rn Disposition: 09/18/18 15:33 Discharged to Home. Impression: Pain in left knee, Pain in left hip, Fall on same level, unspecified. - Condition is Stable. - Discharge Instructions: Joint Pain, Fall Prevention in the Home, Musculoskeletal Pain, VIS, Tetanus, Diphtheria (Td) - CDC, Knee Pain, Cryotherapy, [id number], Heat Therapy. - Work release form, Medication Reconciliation Form, Thank You Letter, Antibiotic Education, Prescription Opioid Use form. - Follow up: Private Physician; When: 2 - 3 days; Reason: Recheck today's complaints, Continuance of care, Re-evaluation by your physician. Follow up: Emergency Department; When: As needed; Reason: Worsening of condition. Signatures: Dispatcher [employer] EDMS Kimberli Chow, MANAGER WINTER-C MANAGER WINTER-Csnw Luan Salcido MD MD rn Attema, Luis RN RN la1 Kindra Campbell RN RN tw2 Corrections: (The following items were deleted from the chart) 15:48 15:33 09/18/2018 15:33 Discharged to Home. Impression: Pain in left knee; Pain in left tw2 hip; Fall on same level, unspecified. Condition is Stable. Forms are Medication Reconciliation Form, Thank You Letter, Antibiotic Education, Prescription Opioid Use. Follow up: Private Physician; When: 2 - 3 days; Reason: Recheck today's complaints, Continuance of care, Re-evaluation by your physician. Follow up: Emergency Department; When: As needed; Reason: Worsening of condition. snw
--- NOTE | 2018-09-18 15:44 | RAD REPORT ---
EXAM DESCRIPTION: RAD - Hip Left 2 View - 09/18/2018 3:09 pm CLINICAL HISTORY: Fall, left hip pain COMPARISON: None. FINDINGS: AP and frogleg views of the left hip were obtained. There is no fracture or dislocation. N o acute or destructive bony process seen. No soft tissue abnormality. IMPRESSION: Negative left hip examination for acute or significant findings.
== END 2018-09-18 15:48 | disposition home or self-care (01) ==
LOC: ER 12:57
DX: M25.562 Pain in left knee (principal); M25.552 Pain in left hip; W01.0XXA Fall on same level from slipping, tripping and stumbling without subsequent striking against object, initial encounter; Y93.9 Activity, unspecified; Y92.9 Unspecified place or not applicable; Z88.6 Allergy status to analgesic agent
CPT/HCPCS: 90471; 90714; 99283

== ENCOUNTER 2018-11-16 14:23 | Emergency (ER) | payer OTHER ==
--- OUTSIDE RECORDS SUMMARY | 2018-11-16 14:28 | XMS REPORT ---
:1970 [address] [facility] Care Team Providers Name Role [...] End Status Dosage System Date Date Azithromycin [facility] [address]-22 250 MG Orally Active not defined Ceftin [facility] 52862324583 500 MG Orally Feb 25, Active 1 tablet Twice a day 2016 Ventolin HFA [facility] [address]-01 90 MCG/ACT Active 2 puffs as Inhalation every needed 4 hrs Lorazepam [facility] 45828662890 2 MG Orally TID Active 1 tablet Topamax [facility] 28575643261 25 MG Orally Active 1 tablet twice a day (bid) Vital Signs Date/Time: Feb 25, 2017 BMI 33.12 Index Weight 187 lbs Height 63 in Temperature 98.3 F Cardiac Monitoring Heart Rate 84 /min Blood Pressure Diastolic 86 mm Hg Blood Pressure Systolic 134 mm Hg Results No Known Results Summary Purpose eClinicalWorks Submission
--- OUTSIDE RECORDS SUMMARY | 2018-11-16 14:28 | XMS REPORT ---
:1970 [facility] Providers Name Role [...] End Date Status Dosage Date Lorazepam MEDISPAN 06467-88 2 MG Orally TID Active 1 tablet at 22-01 bedtime as needed Xanax MEDISPAN 84536-21 0.5 MG Orally Active 1 tablet 55-01 Three times a day Augmentin MEDISPAN 95551-02 875-125 MG Active 1 tablet 86-12 Orally Twice a day with food Augmentin MEDISPAN 82070-38 875-125 MG Nov 25Dec 25, Active 1 tablet 86-12 Orally Twice a 2014 2014 day with food Topamax MEDISPAN 35663-84 200 MG Orally Active 1 tablet 43-30 Once a day Wellbutrin SR MEDISPAN 10464-29 200 MG Orally Active Unknown Social History [...]
--- OUTSIDE RECORDS SUMMARY | 2018-11-16 14:28 | XMS REPORT | Continuity of Care Document ---
:1970 Author Organization [employer] Care Team Providers Name Role Phone [employer] Unavailable Unavailable Problems Problem Status Onset Classification [...] Family history of Active Diagnosis 11/27/2014 Martin aGy ischemic heart [place] disease Family history of [...] Date Date Visit Martin Fischer dog bite [id number] 11/25 11/25 Martin Horton, [id number] /2014 E OBDULIO HERRMANN [id number] [place] [address] Martin Fischer dog bite [id number] 11/25 11/25 Martin Milesmer, [id number] /2014 OBDULIO Gay DO [id number] [place] [address] Martin Fischer Unknown [id number] 04/19 04/19 Martin Milesmer, [id number] /2016 E OBDULIO HERRMANN [id number] [place] [address] Procedures No Data Provided for [...]
--- OUTSIDE RECORDS SUMMARY | 2018-11-16 14:28 | XMS REPORT ---
:1970 [facility] Providers Name Role [...] Date Status Dosage Date Lorazepam [facility] 49727-328 2 MG Orally TID Active 1 tablet 2-01 Wellbutrin SR [facility] 87323-894 200 MG Orally Active not defined Topamax [facility] 73418-784 25 MG Orally Active 1 tablet 6-30 twice a day (bid) Vital Signs Date/Time: August 22, 2016 BMI 30.11 Index Weight 170 lbs Height 63 in Temperature 98.5 F Cardiac Monitoring Heart Rate 78 /min Blood Pressure Diastolic 98 mm Hg Blood Pressure Systolic 144 mm Hg Results No Known Results Summary Purpose eClinicalWorks Submission
--- OUTSIDE RECORDS SUMMARY | 2018-11-16 14:28 | XMS REPORT ---
[...] Date Status Dosage System Date Loratadine NDC 65274080115 10 mg Orally Mar 05, Apr 02, Active 1 tablet Once a day 2016 2017 Levaquin ND 97224350658 500 mg Orally Active 1 tablet every day (qd) Benzonatate ND 32536431892 200 MG Orally Active 1 capsule Three times a as needed day prn cough Results No Known Results Summary Purpose eClinicalWorks Submission
--- OUTSIDE RECORDS SUMMARY | 2018-11-16 14:28 | XMS REPORT ---
[...] Start End Date Status Dosage Date Cefdinir [facility] 19060026708 300 MG Orally Active 1 capsule Twice a day Results No Known Results Summary Purpose eClinicalWorks Submission
--- OUTSIDE RECORDS SUMMARY | 2018-11-16 14:29 | XMS REPORT ---
:1970 [facility] Team Providers Name [...] Date Status Dosage Date Wellbutrin SR MEDISPAN 90779-41 200 MG Orally Active Unknown 22 Wellbutrin SR MEDISPAN 17630-22 200 MG Orally Active Unknown Augmentin MEDISPAN 46482-88 875-125 MG Active 1 tablet 86-12 Orally Twice a day with food Lorazepam MEDISPAN 04212-01 2 MG Orally TID Active 1 tablet 22- Topamax MEDISPAN 55248-42 100 MG Orally Active 1.5 tablet 28-30 [...]
--- NOTE | 2018-11-16 15:01 | EDPHYS ---
Physician Documentation [facility] Name: Adriana Patton Age: 48 yrs Sex: Female : 1970 Arrival Date: 11/16/2018 Time: 14:25 Bed Treatment Private MD: Blanca Dunn ED Physician Federico Broussard HPI: 11/16 15:03 This 48 yrs old Female presents to ER via Ambulatory with complaints of Wound kdr Infection. 15:03 This 48 yrs old Female presents to ER via Ambulatory with complaints of Wound kdr Infection. 15:03 The patient presents with cellulitis of the dorsal aspect of right forearm. kdr Description: The affected area is small, approximately 3 cm(s). Onset: The symptoms/episode began/occurred gradually, 1 week(s) ago. Possible cause(s): animal bite, cat bite, cat scratch. Associated signs and symptoms: Pertinent positives: erythema, swelling, Pertinent negatives: drainage, fever, nausea. 15:14 Modifying factors: the symptoms are alleviated by nothing, the symptoms are aggravated kdr by pressure, touching. Severity of symptoms: At their worst the symptoms were very mild, in the emergency department the symptoms are actually worse, mildly. The patient has not experienced similar symptoms in the past. The patient has not recently seen a physician. The patient had been self medicating with Clinda and bactrim for the past three days. POURER OFF: 14:37 LMP 11/15/2018 aa5 Historical: - Allergies: 14:36 Allopurinol; aa5 14:36 Codeine; aa5 - PMHx: 14:36 50% kidney function; born with defect with kidneys; Depression; possible aa5 fibromyalgia; PTSD; Vertigo; - PSHx: 14:36 reconstructive facial surgery; left ankle; aa5 - Immunization history:: Last tetanus immunization: up to date. - Social history:: Smoking status: Patient/guardian denies using tobacco. - Ebola Screening: : No symptoms or risks identified at this time. ROS: 15:14 Constitutional: Negative for fever, chills, and weight loss, Eyes: Negative for injury, kdr pain, redness, and discharge, Neck: Negative for injury, pain, and swelling, Cardiovascular: Negative for chest pain, palpitations, and edema, Respiratory: Negative for shortness of breath, cough, wheezing, and pleuritic chest pain, Abdomen/GI: Negative for abdominal pain, nausea, vomiting, diarrhea, and constipation. 15:14 Skin: Positive for cellulitis, erythema, swelling, of the palmar aspect of right forearm. Exam: 15:14 Constitutional: This is a well developed, well nourished patient who is awake, alert, kdr and in no acute distress. 15:14 Skin: cellulitis, that is mild, confluent, well demarcated, on the palmar aspect of right forearm. Vital Signs: 14:36 BP 155 / 88; Pulse 82; Resp 16 S; Temp 98.7(TE); Pulse Ox 99% on R/A; Weight 84.82 kg aa5 (R); Height 5 ft. 3 in. (160.02 cm) (R); Pain 0/10; 14:36 Body Mass Index 33.13 (84.82 kg, 160.02 cm) aa5 MDM: 14:59 Patient medically screened. kdr 15:14 Data reviewed: vital signs, nurses notes. kdr Administered Medications: No medications were administered Disposition: 11/16/18 14:59 Discharged to Home. Impression: Bitten by cat, Right Forearm Cellulitis. - Condition is Stable. - Discharge Instructions: Animal Bite, [id number]. - Prescriptions for Augmentin 875- 125 mg Oral Tablet - take 1 tablet by ORAL route every 12 hours for 10 days; 20 tablet. - Medication Reconciliation Form, Thank You Letter, Antibiotic Education form. - Follow up: Blanca Dunn MD; When: 2 - 3 days; Reason: If symptoms return, Further diagnostic work-up, Recheck today's complaints, Continuance of care, Re-evaluation by your physician. - Problem is an ongoing problem. - Symptoms are unchanged. Signatures: Federico Broussard MD MD kdr Clara Shaw RN RN aa5 Carolann Cota RN RN ss Corrections: (The following items were deleted from the chart) 15:44 14:59 11/16/2018 14:59 Discharged to Home. Impression: Bitten by cat; Right Forearm ss Cellulitis. Condition is Stable. Forms are Medication Reconciliation Form, Thank You Letter, Antibiotic Education, Prescription Opioid Use. Follow up: Blanca Dunn; When: 2 - 3 days; Reason: If symptoms return, Further diagnostic work-up, Recheck today's complaints, Continuance of care, Re-evaluation by your physician. Problem is an ongoing problem. Symptoms are unchanged. kdr
--- NOTE | 2018-11-16 15:01 | ER ---
Nurse's Notes [facility] Name: Adriana Patton Age: 48 yrs Sex: Female : 1970 Arrival Date: 11/16/2018 Time: 14:25 Bed Treatment Private MD: Blanca Dunn Diagnosis: Bitten by cat;Right Forearm Cellulitis Presentation: 11/16 14:34 Presenting complaint: Patient states: "I got some cat scratches last week on my right aa5 arm and I think they are infected now". Transition of care: patient was not received from another setting of care. Onset of symptoms was November 2018. Risk Assessment: Do you want to hurt yourself or someone else? Patient reports no desire to harm self or others. Initial Sepsis Screen: Does the patient meet any 2 criteria? No. Patient's initial sepsis screen is negative. Does the patient have a suspected source of infection? No. Patient's initial sepsis screen is negative. Care prior to arrival: None. 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 - Social history:: Smoking status: Patient/guardian denies using tobacco. - Ebola Screening: : No symptoms or risks identified at this time. Screenin:40 Abuse screen: Denies threats or abuse. Nutritional screening: No deficits noted. aa5 Tuberculosis screening: No symptoms or risk factors identified. Fall Risk None identified. Assessment: 14:40 General: Appears in no apparent distress. comfortable, Behavior is calm, cooperative. aa5 Pain: Denies pain. Neuro: Level of Consciousness is awake, alert, obeys commands, Oriented to person, place, time, situation. Cardiovascular: Patient's skin is warm and dry. Respiratory: Airway is patent Respiratory effort is even, unlabored, Respiratory pattern is regular, symmetrical. GI: No signs and/or symptoms were reported involving the gastrointestinal system. : No signs and/or symptoms were reported regarding the genitourinary system. EENT: No signs and/or symptoms were reported regarding the EENT system. Derm: Skin is pink, warm \\T\\ dry. Wound noted palmar aspect of right forearm Wound is red, raised, and itchy, with clear drainage noted. Musculoskeletal: Range of motion: intact in all extremities. 15:40 Reassessment: Wound cleaned with saline and dressed with Neosporin, non-adherent aa5 dressing, and Kerlix per MD. . 15:40 Reassessment: Patient is alert, oriented x 3, equal unlabored respirations, skin aa5 warm/dry/pink. Vital Signs: 14:36 BP 155 / 88; Pulse 82; Resp 16 S; Temp 98.7(TE); Pulse Ox 99% on R/A; Weight 84.82 kg aa5 (R); Height 5 ft. 3 in. (160.02 cm) (R); Pain 0/10; 14:36 Body Mass Index 33.13 (84.82 kg, 160.02 cm) aa5 ED Course: 14:25 Patient arrived in ED. rg4 14:26 Blanca Dunn MD is Private Physician. rg4 14:32 Federico Broussard MD is Attending Physician. kdr 14:35 Triage completed. aa5 14:35 Arm band placed on. aa5 14:35 Patient has correct armband on for positive identification. Adult w/ patient. aa5 14:38 Clara Shaw, ELVIN is Primary Nurse. aa5 14:58 Blanca Dunn MD is Referral Physician. kdr 15:40 No provider procedures requiring assistance completed. Patient did not have IV access aa5 during this emergency room visit. Administered Medications: No medications were administered Outcome: 14:59 Discharge ordered by MD. kdr 15:40 Discharged to home ambulatory, with significant other. aa5 15:40 Condition: stable 15:40 Discharge instructions given to patient, Instructed on discharge instructions, follow up and referral plans. medication usage, wound care, Demonstrated understanding of instructions, follow-up care, medications, wound care, Prescriptions given X 1. 15:44 Patient left the ED. ss Signatures: Federico Broussard MD MD kdr Calderon, Audri, RN RN aa5 Smirch, Shelby, RN RN oj Sotomayor, Farhana rg4
[2018-11-16 17:53] VITALS: BP 155/88; TEMP 98.7; O2SAT 99
== END 2018-11-16 15:44 | disposition home or self-care (01) ==
LOC: ER 14:23
DX: L03.113 Cellulitis of right upper limb (principal); W55.01XA Bitten by cat, initial encounter; Z88.5 Allergy status to narcotic agent; Z88.8 Allergy status to other drugs, medicaments and biological substances
CPT/HCPCS: 99282

== ENCOUNTER 2018-11-19 21:48 | Emergency (ER) | payer OTHER ==
--- OUTSIDE RECORDS SUMMARY | 2018-11-19 21:50 | XMS REPORT | Continuity of Care Document ---
:1970 Author Organization [employer] Care Team Providers Name Role Phone [facility] Unavailable Unavailable Problems Problem Status Onset Classification [...] Date Date Visit Martin Fischer dog bite [id number] 11/25 11/25 Martin Horton, [id number] /2014 E OBDULIO HERRMANN [id number] [place] [address] Martin Fischer dog bite [id number] 11/25 11/25 Martin Milesmer, [id number] /2014 OBDULIO Gay DO [id number] [place] [address] Martin Fischer Unknown [id number] 04/19 04/19 Martin Milesmer, [id number] /2016 E OBDULIO HERRMANN [id number] [place] [address] Procedures No Data Provided for [...]
--- OUTSIDE RECORDS SUMMARY | 2018-11-19 21:50 | XMS REPORT ---
[...] Date Status Dosage System Date Loratadine NDC 49952899196 10 mg Orally Mar 05, Apr 02, Active 1 tablet Once a day 2016 2017 Levaquin ND 98564500800 500 mg Orally Active 1 tablet every day (qd) Benzonatate ND 11574604793 200 MG Orally Active 1 capsule Three times a as needed day prn cough Results No Known Results Summary Purpose eClinicalWorks Submission
--- OUTSIDE RECORDS SUMMARY | 2018-11-19 21:50 | XMS REPORT ---
[...] End Status Dosage System Date Date Azithromycin [facility] [address]-48 250 MG Orally Active not defined Ceftin [facility] 66191493344 500 MG Orally Feb 25, Active 1 tablet Twice a day 2016 Ventolin HFA [facility] [address]-97 90 MCG/ACT Active 2 puffs as Inhalation every needed 4 hrs Lorazepam [facility] 04485756628 2 MG Orally TID Active 1 tablet Topamax [facility] 12236072799 25 MG Orally Active 1 tablet twice a day (bid) Vital Signs Date/Time: Feb 25, 2017 BMI 33.12 Index Weight 187 lbs Height 63 in Temperature 98.3 F Cardiac Monitoring Heart Rate 84 /min Blood Pressure Diastolic 86 mm Hg Blood Pressure Systolic 134 mm Hg Results No Known Results Summary Purpose eClinicalWorks Submission
--- OUTSIDE RECORDS SUMMARY | 2018-11-19 21:50 | XMS REPORT ---
[...] Start End Date Status Dosage Date [facility] 98163399045 300 MG Orally Active 1 capsule Twice a day Results No Known Results Summary Purpose eClinicalWorks Submission
--- OUTSIDE RECORDS SUMMARY | 2018-11-19 21:50 | XMS REPORT ---
:1970 [facility] Providers Name Role [...] Start End Date Status Dosage Date Lorazepam [facility] 81316-040 2 MG Orally TID Active 1 tablet 2-01 Wellbutrin SR [facility] 78612-067 200 MG Orally Active not defined Topamax [facility] 04282-589 25 MG Orally Active 1 tablet 6-30 twice a day (bid) Vital Signs Date/Time: August 22, 2016 BMI 30.11 Index Weight 170 lbs Height 63 in Temperature 98.5 F Cardiac Monitoring Heart Rate 78 /min Blood Pressure Diastolic 98 mm Hg Blood Pressure Systolic 144 mm Hg Results No Known Results Summary Purpose eClinicalWorks Submission
--- OUTSIDE RECORDS SUMMARY | 2018-11-19 21:51 | XMS REPORT ---
[...] End Date Status Dosage Date Lorazepam MEDISPAN 37594-33 2 MG Orally TID Active 1 tablet at 22-01 bedtime as needed Xanax MEDISPAN 14223-35 0.5 MG Orally Active 1 tablet 55-01 Three times a day Augmentin MEDISPAN 32658-87 875-125 MG Active 1 tablet 86-12 Orally Twice a day with food Augmentin MEDISPAN 03410-11 875-125 MG Nov 25Dec 25, Active 1 tablet 86-12 Orally Twice a 2014 2014 day with food Topamax MEDISPAN 87728-44 200 MG Orally Active 1 tablet 43-30 Once a day Wellbutrin SR MEDISPAN 33184-16 200 MG Orally Active Unknown Social History [...]
--- OUTSIDE RECORDS SUMMARY | 2018-11-19 21:51 | XMS REPORT ---
:1970 Author Organization [facility] Care Team Providers Name Role Phone Martin Horton Provider Role Unavailable Allergies, Adverse Reactions, Alerts Substance Reaction Event Type Vicodin Info Not Available Drug Allergy Codeine Sulfate Info Not Available Drug Allergy Chocolate Concentrate Info Not Available Drug Allergy Allopurinol Info Not Available Drug Allergy Encounters Encounter Location Date dog bite [place] Nov 25, 2014 Unknown Martin Hotron [place], [place] Apr 19, 2016 Problems Problem [...] Date Status Dosage Date Wellbutrin SR MEDISPAN 11591-80 200 MG Orally Active Unknown 22 Wellbutrin SR MEDISPAN 65254-60 200 MG Orally Active Unknown Augmentin MEDISPAN 18673-56 875-125 MG Active 1 tablet 86-12 Orally Twice a day with food Lorazepam MEDISPAN 84422-86 2 MG Orally TID Active 1 tablet 22- Topamax MEDISPAN 40135-66 100 MG Orally Active 1.5 tablet 28-30 [...]
--- NOTE | 2018-11-19 22:39 | ER ---
Nurse's Notes [facility] Name: Adriana Patton Age: 48 yrs Sex: Female : 1970 Arrival Date: 11/19/2018 Time: 21:51 Bed 27 Private MD: Diagnosis: Staphylococcal infection, unspecified site Presentation: 11/19 22:06 Presenting complaint: Patient states: wound to right forearm. pt seen on 11/16/18 taking ak1 Augmentin 875mg daily. pt stated wound is "getting worse". Transition of care: patient was not received from another setting of care. Onset of symptoms is unknown. Risk Assessment: Do you want to hurt yourself or someone else? Patient reports no desire to harm self or others. Initial Sepsis Screen: Does the patient meet any 2 criteria? No. Patient's initial sepsis screen is negative. Does the patient have a suspected source of infection? No. Patient's initial sepsis screen is negative. Care prior to arrival: None. 22:06 Method Of Arrival: Ambulatory ak1 22:06 Acuity: NENA 4 ak1 22:08 Note pt stated her PCP is OOT and her appointment is on 12/03/18. ak1 Triage Assessment: 22:08 General: Appears in no apparent distress. Behavior is calm, cooperative. 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 - Social history:: Smoking status: Patient/guardian denies using tobacco. - Ebola Screening: : No symptoms or risks identified at this time. Screenin:10 Abuse screen: Denies threats or abuse. Nutritional screening: No deficits noted. tr5 Tuberculosis screening: No symptoms or risk factors identified. Fall Risk None identified. Assessment: 22:10 General: Appears in no apparent distress. Behavior is calm, cooperative, appropriate tr5 for age. Pain: Complains of pain in right arm. Neuro: Level of Consciousness is awake, alert, obeys commands, Oriented to person, place, time. Cardiovascular: Capillary refill < 3 seconds Pulses are all present. Edema is absent. Respiratory: Airway is patent Respiratory effort is even, unlabored, Respiratory pattern is regular, symmetrical. GI: No signs and/or symptoms were reported involving the gastrointestinal system. : No signs and/or symptoms were reported regarding the genitourinary system. EENT: No signs and/or symptoms were reported regarding the EENT system. Derm: Wound noted right arm. Musculoskeletal: No signs and/or symptoms reported regarding the musculoskeletal system. Capillary refill < 3 seconds, Range of motion: intact in all extremities. Vital Signs: 22:06 BP 157 / 98; Pulse 75; Resp 16; Temp 97; Pulse Ox 99% on R/A; Weight 85.28 kg (R); ak1 Height 5 ft. 3 in. (160.02 cm) (R); Pain 0/10; 22:06 Body Mass Index 33.30 (85.28 kg, 160.02 cm) ak1 ED Course: 21:51 Patient arrived in ED. ag3 22:06 Arm band placed on Patient placed in an exam room, Patient notified of wait time. ak1 22:07 Triage completed. ak1 22:10 Bed in low position. Call light in reach. tr5 22:10 No provider procedures requiring assistance completed. tr5 22:12 Pb Adamson PA is PHCP. jr8 22:12 Kirby Rodriguez MD is Attending Physician. jr8 22:36 Vaughn Cooper, ELVIN is Primary Nurse. tr5 22:50 Dressings: non-adherent dressing x 1 right arm. tr5 23:05 Patient did not have IV access during this emergency room visit. tr5 Administered Medications: 23:03 Drug: Bactroban Ointment 2 % 1 application Route: Topical; Site: affected area; tr5 Outcome: 22:39 Discharge ordered by . jr8 23:05 Discharged to home ambulatory. tr5 23:05 Condition: stable 23:05 Discharge instructions given to patient, family, Instructed on discharge instructions, follow up and referral plans. medication usage, wound care, Demonstrated understanding of instructions, follow-up care, medications, wound care, Prescriptions given X 2. 23:19 Patient left the ED. tr5 Signatures: Pb Adamson PA PA jr8 Veronica Hamm, RN RN ak1 Kendra Arthur ag3 Vaughn Cooper, RN RN tr5
--- NOTE | 2018-11-19 22:40 | EDPHYS ---
Physician Documentation [facility] Name: Adriana Patton Age: 48 yrs Sex: Female : 1970 Arrival Date: 11/19/2018 Time: 21:51 Bed 27 Private MD: ED Physician Kirby Rodriguez HPI: 11/19 22:36 This 48 yrs old Female presents to ER via Ambulatory with complaints of WOUND jr8 GETTING WORSE. 22:36 Onset: The symptoms/episode began/occurred gradually, 3 day(s) ago. Possible cause(s): jr8 unknown. Associated signs and symptoms: The patient has no apparent associated signs or symptoms. Severity of symptoms: At their worst the symptoms were mild, in the emergency department the symptoms are unchanged. The patient has not experienced similar symptoms in the past. The patient has been recently seen by a physician:. Patient stated that she had wound that started as small bump and then increased in size over the past few days. Stated that she was started on Augmentin but feels like it is still increasing . 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 - Social history:: Smoking status: Patient/guardian denies using tobacco. - Ebola Screening: : No symptoms or risks identified at this time. ROS: 22:36 Eyes: Negative for injury, pain, redness, and discharge, ENT: Negative for injury, jr8 pain, and discharge, Neck: Negative for injury, pain, and swelling, Cardiovascular: Negative for chest pain, palpitations, and edema, Respiratory: Negative for shortness of breath, cough, wheezing, and pleuritic chest pain, Abdomen/GI: Negative for abdominal pain, nausea, vomiting, diarrhea, and constipation, Back: Negative for injury and pain, MS/Extremity: Negative for injury and deformity, Neuro: Negative for headache, weakness, numbness, tingling, and seizure. 22:36 Skin: Positive for cellulitis, of the right arm. Exam: 22:36 Eyes: Pupils equal round and reactive to light, extra-ocular motions intact. Lids and jr8 lashes normal. Conjunctiva and sclera are non-icteric and not injected. Cornea within normal limits. Periorbital areas with no swelling, redness, or edema. ENT: Nares patent. No nasal discharge, no septal abnormalities noted. Tympanic membranes are normal and external auditory canals are clear. Oropharynx with no redness, swelling, or masses, exudates, or evidence of obstruction, uvula midline. Mucous membranes moist. Neck: Trachea midline, no thyromegaly or masses palpated, and no cervical lymphadenopathy. Supple, full range of motion without nuchal rigidity, or vertebral point tenderness. No Meningismus. Cardiovascular: Regular rate and rhythm with a normal S1 and S2. No gallops, murmurs, or rubs. Normal PMI, no JVD. No pulse deficits. Respiratory: Lungs have equal breath sounds bilaterally, clear to auscultation and percussion. No rales, rhonchi or wheezes noted. No increased work of breathing, no retractions or nasal flaring. Abdomen/GI: Soft, non-tender, with normal bowel sounds. No distension or tympany. No guarding or rebound. No evidence of tenderness throughout. Back: No spinal tenderness. No costovertebral tenderness. Full range of motion. MS/ Extremity: Pulses equal, no cyanosis. Neurovascular intact. Full, normal range of motion. Neuro: Awake and alert, GCS 15, oriented to person, place, time, and situation. Cranial nerves II-XII grossly intact. Motor strength 5/5 in all extremities. Sensory grossly intact. Cerebellar exam normal. Normal gait. 22:36 Skin: Patient has erythema and bullae region about 4 cm by 4 cm in size to dorsal right forearm. No lymphangitis noted. Vital Signs: 22:06 BP 157 / 98; Pulse 75; Resp 16; Temp 97; Pulse Ox 99% on R/A; Weight 85.28 kg (R); ak1 Height 5 ft. 3 in. (160.02 cm) (R); Pain 0/10; 22:06 Body Mass Index 33.30 (85.28 kg, 160.02 cm) ak1 MDM: 22:20 Patient medically screened. [facility] 22:35 Data reviewed: vital signs, nurses notes, and as a result, I will discharge patient. anthony Data interpreted: Pulse oximetry: on room air is 99 %. Interpretation: normal. Counseling: I had a detailed discussion with the patient and/or guardian regarding: the historical points, exam findings, and any diagnostic results supporting the discharge/admit diagnosis, the need for outpatient follow up, a family practitioner, to return to the emergency department if symptoms worsen or persist or if there are any questions or concerns that arise at home. 22:36 ED course: Discussed with patient that she most likely has Staph/MRSA infection. Will jr8 add bactroban and bactrim. To f/u with PCP after the weekend. If worse to come back . Administered Medications: 23:03 Drug: Bactroban Ointment 2 % 1 application Route: Topical; Site: affected area; tr5 Disposition: 11/19/18 22:39 Discharged to Home. Impression: Staphylococcal infection, unspecified site. - Condition is Stable. - Prescriptions for Bactroban 2 % Topical Ointment - Apply to affected area 1 application by TOPICAL route every 12 hours; 30 gram. Bactrim DS 800- 160 mg Oral Tablet - take 1 tablet by ORAL route every 12 hours for 7 days; 14 tablet. - Medication Reconciliation Form, Thank You Letter, Antibiotic Education, Prescription Opioid Use form. - Follow up: Private Physician; When: 2 - 3 days; Reason: Wound Recheck, Recheck today's complaints, Continuance of care, Re-evaluation by your physician. - Problem is new. - Symptoms have improved. Addendum: 11/23/2018 08:29 Co-signature as Attending Physician, Kirby Rodriguez MD I agree with the assessment and c bianchi plan of care. Signatures: Kirby Rodriguez MD MD cha Roszak, Josh, PA PA jr8 Veronica Hamm RN RN ak1 Vaughn Cooper, RN RN tr5 Corrections: (The following items were deleted from the chart) 11/19 23:19 22:39 11/19/2018 22:39 Discharged to Home. Impression: Staphylococcal infection, tr5 unspecified site. Condition is Stable. Forms are Medication Reconciliation Form, Thank You Letter, Antibiotic Education, Prescription Opioid Use. Follow up: Private Physician; When: 2 - 3 days; Reason: Wound Recheck, Recheck today's complaints, Continuance of care, Re-evaluation by your physician. Problem is new. Symptoms have improved. jr8
[2018-11-19] MEDS ORDERED: MUPIROCIN 2% OINT 22GM TUBE TOP ONE (22:48)
[2018-11-20 04:10] VITALS: BP 157/98; TEMP 97; O2SAT 99
== END 2018-11-19 23:19 | disposition home or self-care (01) ==
LOC: ER 21:48
DX: S51.801A Unspecified open wound of right forearm, initial encounter (principal); B95.8 Unspecified staphylococcus as the cause of diseases classified elsewhere; X58.XXXA Exposure to other specified factors, initial encounter; Z88.6 Allergy status to analgesic agent
CPT/HCPCS: 99283

== ENCOUNTER 2020-07-04 15:31 | Emergency (ER) | payer OTHER ==
--- OUTSIDE RECORDS SUMMARY | 2020-07-04 15:34 | XMS REPORT | Continuity of Care Document ---
:1970 Author Organization [facility] t Address [address] [place] [address] Care Team Providers Name Role Phone Unavailable Unavailable Unavailable Problems Condition Condition Condition Status Onset Resolution Last Treating Co mments Source Name Details Category Date Date Treatment Clinician Date Pain in Problem Active 2017-04-09 Luiz ravi joint, 03:00:33 l ankle and Pain in Herm crystal foot joint, ankle and foot Active Problem 04/09/2017 Martin Horton Other Problem Active 2017-04-09 Memor ia articular 03:00:33 l cartilage Other Chidi n disorders, articular left ankle cartilage disorders, left ankle Active Problem 04/09/2017 Martin Horton Hallucinat Problem Active 2017-04-09 M emoria ions 03:00:33 l [place] Hallucinat ions Active Problem 04/09/2017 Martin Horton Chronic Problem Active 2017-04-09 Luiz ravi tension-ty 03:00:33 l pe Chronic [place] headache, tension-ty not pe intractabl headache, e not intractabl e Active Problem 04/09/2017 Martin Horton Transient Problem Active 2017-04-09 Me moria alteration 03:00:33 l of [place] awareness Transient alteration of awareness Active Problem 04/09/2017 Martin Horton Gouty Problem Active 2017-04-09 Memor ia arthropath 03:00:33 l y Gouty [place] arthropath y Active Problem 04/09/2017 Martin Horton Psychosis, Problem Active 2017-04-09 M emoria unspecifie 03:00:33 l d [place] psychosis Psychosis, type unspecifie d psychosis type Active Problem 04/09/2017 Martin Horton Open bite, Problem Active 2017-04-09 M emoria left lower 03:00:33 l leg, Open [place] initial bite, left encounter lower leg, initial encounter Active Problem 04/09/2017 Martin Horton Cellulitis Problem Active 2017-04-09 M emoria of leg 03:00:33 l [place] Cellulitis of leg Active Problem 04/09/2017 Martin Horton Other Problem Active 2017-04-09 Memor ia chronic 03:00:33 l pain Other [place] chronic pain Active Problem 04/09/2017 Martin Horton Routine Problem Active 2017-04-09 Luiz ravi medical 03:00:33 l exam Routine [place] medical exam Active Problem 04/09/2017 Martin Horton Other Problem Active 2017-04-09 Memor ia specified 03:00:33 l viral Other [place] exanthemat specified a viral exanthemat a Active Problem 04/09/2017 Martin Horton Allergic Problem Active 2017-04-09 Mem oria urticaria 03:00:33 l Allergic Chidi n urticaria Active Problem 04/09/2017 Martin Horton Dizziness Problem Active 2017-04-09 Me moria and 03:00:33 l giddiness [place] Dizziness and giddiness Active Problem 04/09/2017 Martin Horton Other drug Problem Active 2017-04-09 M emoria allergy 03:00:33 l Other [place] drug allergy Active Problem 04/09/2017 Martin Horton Generalize Problem Active 2017-04-09 M emoria d anxiety 03:00:33 l disorder [place] Generalize d anxiety disorder Active Problem 04/09/2017 Martin Horton Dermatophy Problem Active 2017-04-09 M emoria tosis of 03:00:33 l body [place] Dermatophy tosis of body Active Problem 04/09/2017 Martin Horton Major Problem Active 2017-04-09 Memor ia depressive 03:00:33 l disorder, Major Chidi n recurrent depressive episode disorder, recurrent episode Active Problem 04/09/2017 Martin Horton Pneumonia Diagnosis Active 2017-02-26 Memoria due to 03:01:11 l infectious Chidi n organism, Pneumonia unspecifie due to d infectious laterality organism, , unspecifie unspecifie d d part of laterality lung , unspecifie d part of lung Active Diagnosis 02/26/2017 Martin Horton SOB Diagnosis Active 2016-08-24 Mem oria (shortness 02:00:28 l of breath) SOB Chidi n (shortness of breath) Active Diagnosis 08/24/2016 Martin Horton Cellulitis Diagnosis Active 2014-11-27 Memoria of leg 02:02:40 l [place] Cellulitis of leg Active Diagnosis 11/27/2014 Martin Horton Unspecifie Diagnosis Active 2014-11-27 Memoria d ankle 02:02:40 l and foot [place] joint Unspecifie derangemen d ankle t and foot joint derangemen t Active Diagnosis 11/27/2014 Martin Horton Injury, Diagnosis Active 2014-11-27 Me moria other and 02:02:40 l unspecifie Injury, Her rai d, knee, other and leg, unspecifie ankle, and d, knee, foot leg, ankle, and foot Active Diagnosis 11/27/2014 Martin Horton Family Diagnosis Active 2014-11-27 Mem oria history of 02:02:40 l diabetes Family Chidi n mellitus history of diabetes mellitus Active Diagnosis 11/27/2014 Martin Horton Family Diagnosis Active 2014-11-27 Mem oria history of 02:02:40 l ischemic Family Chidi n heart history of disease ischemic heart disease Active Diagnosis 11/27/2014 Martin Horton Family Diagnosis Active 2014-11-27 Mem oria history of 02:02:40 l other Family [place] cardiovasc history of ular other diseases cardiovasc ular diseases Active Diagnosis 11/27/2014 Martin Horton Gouty Diagnosis Active 2014-11-27 Mem oria arthropath 02:02:40 l y, Gouty [place] unspecifie arthropath d y, unspecifie d Active Diagnosis 11/27/2014 Martin Horton Gout, Diagnosis Active 2014-11-27 Mem oria unspecifie 02:02:40 l d Gout, [place] unspecifie d Active Diagnosis 11/27/2014 Martin Horton Allergic Problem Active 2014-11-27 Mem oria urticaria 02:02:40 l Allergic Chidi n urticaria Active Problem 11/27/2014 Martin Horton Body Mass Diagnosis Active 2014-11-27 Memoria Index 02:02:40 l between Body [place] 19-24, Mass Index adult between 19-24, adult Active Diagnosis 11/27/2014 Martin Horton Major Diagnosis Active 2014-11-27 Mem oria depressive 02:02:40 l disorder, Major Chidi n recurrent depressive episode, disorder, unspecifie recurrent d episode, unspecifie d Active Diagnosis 11/27/2014 Martin Horton Dermatophy Problem Active 2014-11-27 M emoria tosis of 02:02:40 l the body [place] Dermatophy tosis of the body Active Problem 11/27/2014 Martin Horton Generalize Problem Active 2014-11-27 M emoria d anxiety 02:02:40 l disorder [place] Generalize d anxiety disorder Active Problem 11/27/2014 Martin Horton Pain in Problem Active 2014-11-27 Luiz ravi joint, 02:02:40 l ankle and Pain in [facility] foot joint, ankle and foot Active Problem 11/27/2014 Martin Horton Dog bite Diagnosis Active 2014-11-27 M emoria of left 02:02:40 l lower leg Dog bite Her rai with of left infection lower leg with infection Active Diagnosis 11/27/2014 Martin Horton Loose body Problem Active 2014-11-27 M emoria in ankle 02:02:40 l and foot Loose [place] joint body in ankle and foot joint Active Problem 11/27/2014 Martin Horton Articular Problem Active 2014-11-27 Me moria cartilage 02:02:40 l disorder, [place] ankle and Articular foot cartilage disorder, ankle and foot Active Problem 11/27/2014 Martin Horton Other drug Problem Active 2014-11-27 M emoria allergy 02:02:40 l Other [place] drug allergy Active Problem 11/27/2014 Martin Horton Other Problem Active 2014-11-27 Memor ia specified 02:02:40 l viral Other [place] exanthemat specified a viral exanthemat a Active Problem 11/27/2014 Martin E Buxbaum Transient Problem Active 2014-11-27 Me moria alteration 02:02:40 l of [place] awareness Transient alteration of awareness Active Problem 11/27/2014 Martin Horton Dizziness Problem Active 2014-11-27 Me moria and 02:02:40 l giddiness [place] Dizziness and giddiness Active Problem 11/27/2014 Martin Horton Acute pain Diagnosis Active 2016-04-21 Memoria of left 03:02:13 l shoulder Acute [place] pain of left shoulder Active Diagnosis 04/21/2016 Martin Horton Pain in Diagnosis Active 2016-04-21 Me moria unspecifie 03:02:13 l d joint Pain in Chidi n unspecifie d joint Active Diagnosis 04/21/2016 Martin Horton Body mass Diagnosis Active 2016-04-21 Memoria index 03:02:13 l 29.0-29.9, Body Chidi n adult mass index 29.0-29.9, adult Active Diagnosis 04/21/2016 Martin Horton Body mass Problem Active 2017-04-09 Me moria index 03:00:33 l (BMI) of Body [place] 20.0 to mass index 20.9 in (BMI) of adult 20.0 to 20.9 in adult Active Problem 04/09/2017 Martin Horton Unspecifie Problem Active 2017-04-09 M emoria d ankle 03:00:33 l and foot [place] joint Unspecifie derangemen d ankle t and foot joint derangemen t Active Problem 04/09/2017 Martin Horton Family Problem Active 2017-04-09 Memor ia history of 03:00:33 l diabetes Family Chidi n mellitus history of diabetes mellitus Active Problem 04/09/2017 Martin Horton Loose body Problem Active 2017-04-09 M emoria in 03:00:33 l unspecifie Loose Lizz nn d ankle body in unspecifie d ankle Active Problem 04/09/2017 Martin Horton Family Problem Active 2017-04-09 Memor ia history of 03:00:33 l ischemic Family Chidi n heart history of disease ischemic heart disease Active Problem 04/09/2017 Martin Horton Unspecifie Problem Active 2017-04-09 M emoria d injury 03:00:33 l of [place] unspecifie Unspecifie d lower d injury leg, of initial unspecifie encounter d lower leg, initial encounter Active Problem 04/09/2017 Martin Victor Hugo Buxbaum Allergies, Adverse Reactions, Alerts Allergy Allergy Status Severity Reaction(s) Onset Inactive Treating Comm ents Source Name Type Date Date Clinician Vicodin Vicodin Active Info Not 2016-03 Memori a Available 2-19 l 00:00: [place] 00 Codeine Codeine Active Info Not 2016-03 Memori a Sulfate Sulfate Available 2-19 l 00:00: [place] 00 Chocolat Chocolat Active Info Not 2016-03 Luiz ravi e e Available 2-19 l Concentr Concentr 00:00: Chidi n ate ate 00 Allopuri Allopuri Active Info Not 2016-03 Luiz ravi nol nol Available 2-19 l 00:00: [place] 00 Allopuri Adverse Active allopurinol [facility] nol Reaction sensitivity/ Monalisa marsha Browning Luiz ravi on l [facility] Egg/Pro Adverse Active Info Not [facility] Chocolat Adverse Active vertigo/naus [facility] Flavor Reaction ea [facility] Family History Family Member Diagnosis Comments Start Date Stop Date Source Unknown Family Family History 2016-04-21 2016-04-21 Arely al [place] Member 03:02:13 03:02:13 Social History Social Habit Start Date Stop Date Quantity Comments Source TobaccoUse: 2016-04-19 00:00:00 2016-04-19 Luiz rial [place] 00:00:00 Medications Ordered Filled Start Stop Current Ordering Indication Dosage Frequency Signature Comments Components Source Medication Medication Date Date Medication? Clinician (SIG) Name Name Enalapril Enalapril 2018-03 Yes Blanca [address] [facility] Maleate Maleate 0-25 Millender Luke [facility] - 00:00: [facility] 00 l [facility] Sumatriptan Sumatriptan Yes Blanca as [facility] Succinate Succinate 9-26 Millender directed [facility] Cefdinir 2016-03 Yes Martin 1 capsule M emoria 2-29 Buxbaum l 03:00: [place] 23 Levaquin 2016-03 Yes Martin 1 tablet Me moria 2-28 Buxbaum l 03:00: [place] 48 Benzonatate 2016-03 Yes Martin 1 capsule Memoria 2-28 Buxbaum as needed l 03:00: [place] Loratadine 2016-03 Yes Martin 1 tablet Memoria 2-27 Buxbaum l 00:00: [place] 00 Azithromyci 2016-03 Yes Martin not Mem oria n 2-20 Buxbaum defined l 03:01: [place] Ventolin 2016-03 Yes Martin 2 puffs as Memoria HFA 2-20 Buxbaum needed l 03:01: [place] Lorazepam 2016-03 Yes Martin 1 tablet M emoria 2-20 Buxbaum l 03:01: [place] Topamax 2016-03 Yes Martin 1 tablet Mem oria 2-20 Buxbaum l 03:01: [place] Ceftin 2016-03 Yes Martin 1 tablet Luiz ravi 2-19 Buxbaum l 00:00: Lorazepam Yes Martin 1 tablet M emoria 6-17 Buxbaum l 02:00: [place] Wellbutrin Yes Martin not Luiz ravi SR 6-17 Buxbaum defined l 02:00: [place] Topamax Yes Martin 1 tablet Mem oria 6-17 Buxbaum l 02:00: [place] Augmentin Yes Martin 1 tablet M emoria 2-12 Buxbaum l 03:02: [place] Topamax Yes Martin 1.5 tablet M emoria 2-12 Buxbaum l 03:02: [place] Xanax Yes Martin 1 tablet Memor ia 9-20 Buxbaum l 02:02: [place] Topamax Yes Martin 1 tablet Mem oria 9-20 Buxbaum l 02:02: [place] Augmentin Yes Martin 1 tablet M emoria 9-18 Buxbaum l 00:00: [place] 00 Qunol Qunol Yes Blanca as [facility] CoQ10/Ubiqu CoQ10/Ubiqu Millender directed [facility] Nac Nac Yes Blanca [address] [facility] Milk Milk Yes Blanca as [facility] Thistle Thistle [facility] Vitamin D3 Vitamin D3 Yes Blanca [address] [facility] Vitamin K2 Vitamin K2 Yes Bl[facility] as [facility] Millender directed [facility] Vitamin B12 Vitamin B12 Yes Blanca [address] [facility] Millender [facility] Amitriptyli Amitriptyli Yes Blanca [address] [facility] ne HCl ne HCl Millender at bedtime [facility] Vital Signs Vital Name Observation Time Observation Value Comments Source Weight 2017-02-25 20:15:00 [facility] [place] Height 2017-02-25 20:15:00 [facility] [place] Temperature Oral (F) 2017-02-25 20:15:00 98.3 F [facility] [place] Heart Rate 2017-02-25 20:15:00 [facility] [place] Diastolic (mm Hg) 2017-02-25 20:15:00 Mem orial [place] Systolic (mm Hg) 2017-02-25 20:15:00 Luiz rial [place] Weight 2016-08-22 18:45:00 [facility] [place] Height 2016-08-22 18:45:00 [facility] [place] Temperature Oral (F) 2016-08-22 18:45:00 98.5 F [facility] [place] Heart Rate 2016-08-22 18:45:00 [facility] [place] Diastolic (mm Hg) 2016-08-22 18:45:00 Mem orial [place] Systolic (mm Hg) 2016-08-22 18:45:00 Luiz rial [place] Weight 2016-04-19 15:30:00 [facility] [place] Height 2016-04-19 15:30:00 [facility] [place] Temperature Oral (F) 2016-04-19 15:30:00 97.5 F [facility] [place] Heart Rate 2016-04-19 15:30:00 [facility] [place] Diastolic (mm Hg) 2016-04-19 15:30:00 Mem orial [place] Systolic (mm Hg) 2016-04-19 15:30:00 Luiz rial [place] Weight 2014-11-25 14:45:00 [facility] [place] Height 2014-11-25 14:45:00 [facility] [place] Temperature Oral (F) 2014-11-25 14:45:00 97.9 F [facility] [place] Heart Rate 2014-11-25 14:45:00 [facility] [place] Diastolic (mm Hg) 2014-11-25 14:45:00 Mem orial [place] Systolic (mm Hg) 2014-11-25 14:45:00 Luiz riakelsey [place] Procedures This patient has no known procedures. Encounters Start End Encounter Admission Attending Care Care Encounter Source Date/Time Date/Time Type Type Clinicians Facility Department ID 2020-02-23 2020-02-23 Out[facility] [id number] 2020-01-28 2020-01-28 [facility] [id number] [facility] 2020-01-12 2020-01-12 [facility] [id number] [facility] 2019-11-24 2019-11-24 [facility] [id number] [facility] 2019-01-29 2019-01-29 [facility] [id number] [facility] 15[facility] 15[facility]00[facility]00 [facility] 2019-01-01 2019-01-01 [facility] [id number] [facility] 15:[facility]00 15:00:00 [facility] 2018-12-03 2018-12-03 [facility] [id number] [facility] 14:[facility]00 14:00[facility]00 [facility] 2017-04-07 2017-04-07 Outpatient Martin Gay [id number] [facility] 14:52:00 14:52:00 [facility]baum alWork s DOPA DOPA 2017-03-05 2017-03-05 Outpatient Martin Gay [id number] [facility] 15:02:00 15:02:00 Buxbaum Buxbaum alWork s DOPA DOPA 2017-03-05 2017-03-05 Outpatient Martin Salazar Victor Hugo [id number] [facility] 09:36:00 09:36:00 Buxbaum Buxbaum alWork s DOPA DOPA 2017-02-25 2017-02-25 Outpatient Martin Salazar Victor Hugo [id number] [facility] 14:15:00 14:15:00 Buxbaum Buxbaum alWork s DOPA DOPA 2016-08-27 2016-08-27 Outpatient Martin Salazar Victor Hugo [id number] [facility] 10:00:00 10:00:00 Buxbaum Buxbaum alWork s DOPA DOPA 2016-08-22 2016-08-22 Outpatient Martin Salazar Victor Hugo [id number] [facility] 13:45:00 13:45:00 Buxbaum Buxbaum alWork s DOPA DOPA 2016-04-19 2016-04-19 Outpatient Martin GayMercedes [id number] [facility] 09:30:00 09:30:00 Xin Newell DO, PA DO, PA 2014-11-25 2014-11-25 Outpatient Martin GayMercedes [id number] [facility] 09:45:00 09:45:00 Xin Newell DO, PA DO, PA Results This patient has no known results.
--- NOTE | 2020-07-04 17:17 | RAD REPORT ---
EXAM DESCRIPTION: RAD - Ankle Left 3 View -07/04/2020 5:00 pm CLINICAL HISTORY: Left ankle pain status post injury FINDINGS: No fracture or dislocation is seen. Large plantar calcaneal spur
--- NOTE | 2020-07-04 17:49 | EDPHYS ---
Physician Documentation [facility] Name: Adriana Patton Age: 49 yrs Sex: Female : 1970 Arrival Date: 07/04/2020 Time: 15:39 Bed 18 Private MD: ED Physician Balaji Vo HPI: 07/04 16:56 This 49 yrs old Female presents to ER via Wheelchair with complaints of Ankle tw4 Injury. 16:56 The patient presents with decreased range of motion, pain. The complaints affect the tw4 left ankle. Onset: The symptoms/episode began/occurred today. Context: The problem was sustained at home, resulted from a mis-step by the patient, on a slippery surface. Associated signs and symptoms: The patient has no apparent associated signs or symptoms. Modifying factors: The symptoms are alleviated by nothing, the symptoms are aggravated by nothing. Severity of symptoms: At their worst the symptoms were moderate, in the emergency department the symptoms are unchanged. The patient has not experienced similar symptoms in the past. 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 - Social history:: Smoking status: Patient denies any tobacco usage or history of. ROS: 16:56 Constitutional: Negative for fever, chills, and weight loss, Eyes: Negative for injury, tw4 pain, redness, and discharge, Cardiovascular: Negative for chest pain, palpitations, and edema, Respiratory: Negative for shortness of breath, cough, wheezing, and pleuritic chest pain, Abdomen/GI: Negative for abdominal pain, nausea, vomiting, diarrhea, and constipation, Back: Negative for injury and pain. 16:56 MS/extremity: Positive for pain. Exam: 16:56 Constitutional: This is a well developed, well nourished patient who is awake, alert, tw4 and in no acute distress. Head/Face: Normocephalic, atraumatic. Chest/axilla: Normal chest wall appearance and motion. Nontender with no deformity. No lesions are appreciated. Cardiovascular: Regular rate and rhythm with a normal S1 and S2. No gallops, murmurs, or rubs. Normal PMI, no JVD. No pulse deficits. Skin: Warm, dry with normal turgor. Normal color with no rashes, no lesions, and no evidence of cellulitis. 16:56 Musculoskeletal/extremity: Extremities: noted in the left lateral ankle and lateral aspect of left foot: Vital Signs: 16:33 BP 132 / 85; Pulse 72; Resp 18; Temp 99.5(O); Pulse Ox 99% on R/A; Weight 59.42 kg; em Height 5 ft. 3 in. (160.02 cm); Pain 4/10; 17:31 BP 115 / 75; Pulse 68; Resp 18; Temp 98.5(TE); Pulse Ox 100% on R/A; Weight 59.42 kg; ld1 Height 5 ft. 3 in. (160.02 cm); Pain 5/10; 17:31 Body Mass Index 23.21 (59.42 kg, 160.02 cm) ld1 MDM: 17:48 Patient medically screened. tw4 07/04 16:37 Order name: Ankle Left 3 View XRAY; Complete Time: 17:48 em Administered Medications: 17:58 Drug: Tylenol 1000 mg Route: PO; ld1 Disposition: 07/04/20 17:48 Discharged to Home. Impression: Sprain of ankle. - Condition is Stable. - Discharge Instructions: Ankle Sprain. - Prescriptions for Ibuprofen 800 mg Oral Tablet - take 1 tablet by ORAL route every 8 hours As needed take with food; 30 tablet. - Medication Reconciliation Form, Thank You Letter, Antibiotic Education, Prescription Opioid Use form. - Follow up: Private Physician; When: Upon discharge from the Emergency Department; Reason: Recheck today's complaints, Continuance of care, Re-evaluation by your physician. - Problem is new. - Symptoms have improved. Signatures: Dispatcher [employer] Capo Zafar, RN RN Balaji Vo MD MD tw4 Luisa Raines RN RN ld1 Corrections: (The following items were deleted from the chart) 18:17 17:48 07/04/2020 17:48 Discharged to Home. Impression: Sprain of ankle. Condition is ld1 Stable. Forms are Medication Reconciliation Form, Thank You Letter, Antibiotic Education, Prescription Opioid Use. Follow up: Private Physician; When: Upon discharge from the Emergency Department; Reason: Recheck today's complaints, Continuance of care, Re-evaluation by your physician. Problem is new. Symptoms have improved. tw4
--- NOTE | 2020-07-04 17:49 | ER ---
Nurse's Notes [facility] Name: Adriana Patton Age: 49 yrs Sex: Female : 1970 Arrival Date: 07/04/2020 Time: 15:39 Bed 18 Private MD: Diagnosis: Sprain of ankle Presentation: 07/04 16:33 Chief complaint: Patient states: cleaning in the yard and rolled right ankle, heard a em pop, swelling noted to right ankle. Coronavirus screen: Client denies travel out of the [place] in the last 14 days. Ebola Screen: Patient negative for fever greater than or equal to 101.5 degrees Fahrenheit, and additional compatible Ebola Virus Disease symptoms Patient denies exposure to infectious person. Patient denies travel to an Ebola-affected area in the 21 days before illness onset. No symptoms or risks identified at this time. Initial Sepsis Screen: Does the patient meet any 2 criteria? No. Patient's initial sepsis screen is negative. Does the patient have a suspected source of infection? No. Patient's initial sepsis screen is negative. Risk Assessment: Do you want to hurt yourself or someone else? Patient reports no desire to harm self or others. Onset of symptoms was July 04, 2020. 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 - Social history:: Smoking status: Patient denies any tobacco usage or history of. Screenin:31 Abuse screen: Denies threats or abuse. Denies injuries from another. Nutritional ld1 screening: No deficits noted. Tuberculosis screening: No symptoms or risk factors identified. Fall Risk None identified. Assessment: 17:31 General: Appears in no apparent distress. comfortable, Behavior is calm, cooperative, ld1 appropriate for age. Pain: Complains of pain in left lateral ankle and lateral aspect of left foot Pain currently is 5 out of 10 on a pain scale. Quality of pain is described as throbbing, Pain began 4 hours ago. Is continuous. Neuro: Level of Consciousness is awake, alert, obeys commands, Oriented to person, place, time, situation, Appropriate for age. Cardiovascular: Capillary refill < 3 seconds Patient's skin is warm and dry. Respiratory: Airway is patent Respiratory effort is even, unlabored, Respiratory pattern is regular, symmetrical. GI: Abdomen is flat, non-distended. : No deficits noted. EENT: No deficits noted. No signs and/or symptoms were reported regarding the EENT system. Derm: No deficits noted. Musculoskeletal: Swelling present in left lateral ankle and lateral aspect of left foot Reports pain in left lateral ankle and lateral aspect of left foot since 1345 today, patient states she was walking in yard and twisted ankle. . Pain is 5 out of 10 on a pain scale. Vital Signs: 16:33 BP 132 / 85; Pulse 72; Resp 18; Temp 99.5(O); Pulse Ox 99% on R/A; Weight 59.42 kg; em Height 5 ft. 3 in. (160.02 cm); Pain 4/10; 17:31 BP 115 / 75; Pulse 68; Resp 18; Temp 98.5(TE); Pulse Ox 100% on R/A; Weight 59.42 kg; ld1 Height 5 ft. 3 in. (160.02 cm); Pain 5/10; 17:31 Body Mass Index 23.21 (59.42 kg, 160.02 cm) ld1 ED Course: 15:39 Patient arrived in ED. mr 16:35 Triage completed. em 16:35 Arm band placed on. em 16:44 Balaji Vo MD is Attending Physician. tw4 17:01 Ankle Left 3 View XRAY In Process Unspecified. EDMS 17:12 Sandor Mcgregor, RN is Primary Nurse. jl7 17:31 Luisa Raines, ELVIN is Primary Nurse. ld1 17:31 Patient has correct armband on for positive identification. Bed in low position. Call ld1 light in reach. Side rails up X 1. Pulse ox on. NIBP on. Door closed. Noise minimized. Warm blanket given. 17:31 No provider procedures requiring assistance completed. ld1 17:59 Patient did not have IV access during this emergency room visit. ld1 Administered Medications: 17:58 Drug: Tylenol 1000 mg Route: PO; ld1 Outcome: 17:48 Discharge ordered by . [email or web address] 17:58 Discharged to home ambulatory. ld1 17:58 Condition: stable 17:58 Discharge instructions given to patient, Instructed on discharge instructions, follow up and referral plans. medication usage, Demonstrated understanding of instructions, follow-up care, medications. 18:17 Patient left the ED. ld1 Signatures: Dispatcher [employer] EDRI Phyllis Causey Edgar, RN RN Sandor Mike RN RN jl7 Balaji Vo MD MD tw4 Luisa Raines RN RN ld1
[2020-07-04] MEDS ORDERED: ACETAMINOPHEN 500 MG TAB ONE (18:14)
[2020-07-04 18:54] VITALS: BP 115/75; TEMP 98.5; O2SAT 100
== END 2020-07-04 18:17 | disposition home or self-care (01) ==
LOC: ER 15:31
DX: S93.402A Sprain of unspecified ligament of left ankle, initial encounter (principal); W01.0XXA Fall on same level from slipping, tripping and stumbling without subsequent striking against object, initial encounter; F32.9 Major depressive disorder, single episode, unspecified; F43.10 Post-traumatic stress disorder, unspecified
CPT/HCPCS: 99283

== ENCOUNTER 2020-08-08 12:56 | Emergency (ER) | payer OTHER ==
--- OUTSIDE RECORDS SUMMARY | 2020-08-08 12:59 | XMS REPORT | Continuity of Care Document ---
:1970 Author Organization [facility] t Address [address] [place] [address] [address]. [address] [place] [address] Care Team Providers Name Role Phone Melvin Benton DO Attending Clinician Problems Condition Condition Condition Status Onset Resolution Last Treating Co mments Source Name Details Category Date Date Treatment Clinician Date Body mass Problem Active 2017-04-09 Me moria index 03:00:33 l (BMI) of Body [place] 20.0 to mass index 20.9 in (BMI) of adult 20.0 to 20.9 in adult Active Problem 04/09/2017 Martin Victor Hugo Yasminm Unspecifie Problem Active 2017-04-09 M emoria d ankle 03:00:33 l and foot [place] joint Unspecifie derangemen d ankle t and foot joint derangemen t Active Problem 04/09/2017 Martin Victor Hugo Yasminm Family Problem Active 2017-04-09 Memor ia history of 03:00:33 l diabetes Family Chidi n mellitus history of diabetes mellitus Active Problem 04/09/2017 Martin Bargerjaleesaaum Loose body Problem Active 2017-04-09 M emoria in 03:00:33 l unspecifie Loose Lizz nn d ankle body in unspecifie d ankle Active Problem 04/09/2017 Martin Victor Hugo Yasminm Family Problem Active 2017-04-09 Memor ia history of 03:00:33 l ischemic Family Chidi n heart history of disease ischemic heart disease Active Problem 04/09/2017 Martin Hoffmanm Unspecifie Problem Active 2017-04-09 M emoria d injury 03:00:33 l of [place] unspecifie Unspecifie d lower d injury leg, of initial unspecifie encounter d lower leg, initial encounter Active Problem 04/09/2017 Martin Horton Pain in Problem Active 2017-04-09 Luiz ravi [...] Luiz ravi tension-ty 03:00:33 l pe Chronic [place] headache, tension-ty not pe intractabl headache, e [...] 2017-04-09 M emoria unspecifie 03:00:33 l d [place] psychosis Psychosis, type unspecifie d psychosis type Active Problem 04/09/2017 Martin Horton Open bite, Problem Active 2017-04-09 M emoria left lower 03:00:33 l leg, Open [place] initial bite, left encounter lower leg, initial encounter Active Problem 04/09/2017 Martin Horton Cellulitis Problem Active 2017-04-09 M emoria of leg 03:00:33 l [place] Cellulitis of leg Active Problem 04/09/2017 Martin Horton Other Problem Active 2017-04-09 Memor ia chronic 03:00:33 l pain Other [place] chronic pain Active Problem 04/09/2017 Martin Horton Routine Problem Active 2017-04-09 Luiz ravi medical 03:00:33 l exam Routine [place] medical exam Active Problem 04/09/2017 Martin Horton Other Problem Active 2017-04-09 Memor ia specified 03:00:33 l viral Other [place] exanthemat specified a viral exanthemat a Active Problem 04/09/2017 Martin Horton Allergic Problem Active 2017-04-09 Mem oria urticaria 03:00:33 l Allergic Chidi n urticaria Active Problem 04/09/2017 Martin Horton Dizziness Problem Active 2017-04-09 Me moria and 03:00:33 l giddiness [place] Dizziness and giddiness Active Problem 04/09/2017 Martin Horton Other drug Problem Active 2017-04-09 M emoria allergy 03:00:33 l Other [place] drug allergy Active Problem 04/09/2017 Martin Horton Generalize Problem Active 2017-04-09 M emoria d anxiety 03:00:33 l disorder [place] Generalize d anxiety disorder Active Problem 04/09/2017 Martin Horton Dermatophy Problem Active 2017-04-09 M emoria tosis of 03:00:33 l body [place] Dermatophy tosis of body Active Problem 04/09/2017 Martin Horton Major Problem Active 2017-04-09 Memor ia depressive 03:00:33 l disorder, Major Chidi n recurrent depressive episode disorder, recurrent episode Active Problem 04/09/2017 Martin Horton SOB Diagnosis Active 2016-08-24 Mem oria (shortness 02:00:28 l of breath) SOB Chidi n (shortness of breath) Active Diagnosis 08/24/2016 Martin Horton Pneumonia Diagnosis Active 2017-02-26 Memoria due to 03:01:11 l infectious Chidi n organism, Pneumonia unspecifie due to d infectious laterality organism, , unspecifie unspecifie d d part of laterality lung , unspecifie d part of lung Active Diagnosis 02/26/2017 Martin Horton Cellulitis Diagnosis Active 2014-11-27 Memoria of leg 02:02:40 l [place] Cellulitis of leg Active Diagnosis 11/27/2014 Martin [...] oria history of 02:02:40 l other Family [place] cardiovasc history of ular other diseases cardiovasc ular diseases Active Diagnosis 11/27/2014 Martin Horton Gouty Diagnosis Active 2014-11-27 Mem oria arthropath 02:02:40 l y, Gouty [place] unspecifie arthropath d y, unspecifie d Active Diagnosis 11/27/2014 Martin Horton Gout, Diagnosis Active 2014-11-27 Mem oria unspecifie 02:02:40 l d Gout, [place] unspecifie d Active Diagnosis 11/27/2014 Martin Horton Allergic Problem Active 2014-11-27 Mem oria urticaria 02:02:40 l Allergic Chidi coy urticaria Active Problem 11/27/2014 Martin Horton Body Mass Diagnosis Active 2014-11-27 Memoria Index 02:02:40 l between Body [place] 19-24, Mass Index adult between 19-24, adult Active Diagnosis 11/27/2014 Martin Horton Major Diagnosis Active 2014-11-27 Mem oria depressive 02:02:40 l disorder, Major Chidi n recurrent depressive episode, disorder, unspecifie recurrent d episode, unspecifie d Active Diagnosis 11/27/2014 Martin Horton Dermatophy Problem Active 2014-11-27 M emoria tosis of 02:02:40 l the body [place] Dermatophy tosis of the body Active Problem 11/27/2014 Martin Horton Generalize Problem Active 2014-11-27 M emoria d anxiety 02:02:40 l disorder [place] Generalize d anxiety disorder Active Problem 11/27/2014 [...] in ankle 02:02:40 l and foot Loose [place] joint body in ankle and foot joint Active Problem 11/27/2014 Martin Horton Articular Problem Active 2014-11-27 Me moria cartilage 02:02:40 l disorder, [place] ankle and Articular foot cartilage disorder, ankle and foot Active Problem 11/27/2014 Martin Horton Other drug Problem Active 2014-11-27 M emoria allergy 02:02:40 l Other [place] drug allergy Active Problem 11/27/2014 Martin Horton Other Problem Active 2014-11-27 Memor ia specified 02:02:40 l viral Other [place] exanthemat specified a viral exanthemat a Active Problem 11/27/2014 Martin Horton Transient Problem Active 2014-11-27 Me moria alteration 02:02:40 l of [place] awareness Transient alteration of awareness Active Problem 11/27/2014 Martin Horton Dizziness Problem Active 2014-11-27 Me moria and 02:02:40 l giddiness [place] Dizziness and giddiness Active Problem 11/27/2014 Martin Horton Acute pain Diagnosis Active 2016-04-21 Memoria of left 03:02:13 l shoulder Acute [place] pain of left shoulder Active Diagnosis 04/21/2016 Martin Horton Pain in Diagnosis Active 2016-04-21 Me moria unspecifie 03:02:13 l d joint Pain in Chidi n unspecifie d joint Active Diagnosis 04/21/2016 Martin Horton Body mass Diagnosis Active 2016-04-21 Memoria index 03:02:13 l 29.0-29.9, Body Chidi n adult mass index 29.0-29.9, adult Active Diagnosis 04/21/2016 Martin Bargerxbmer Allergies, Adverse Reactions, Alerts Allergy Allergy Status Severity Reaction(s) Onset Inactive Treating Comm ents Source Name Type Date Date Clinician Vicodin Vicodin Active Info Not 2016-03 Memori a Available 2-19 l 00:00: [place] 00 Codeine Codeine Active Info Not 2016-03 Memori a Sulfate Sulfate Available 2-19 l 00:00: [place] 00 Chocolat Chocolat Active Info Not 2016-03 Luiz ravi e e Available 2-19 l Concentr Concentr 00:00: Chidi n ate ate 00 Allopuri Allopuri Active Info Not 2016-03 Luiz ravi nol nol Available 2-19 l 00:00: [place] 00 Chocolat Adverse Active vertigo/naus [facility] Flavor [facility] Allopuri Adverse Active allopurinol [facility] nol Reaction sensitivity/ Monalisa marsha [facility] on [facility] Egg/Pro Adverse Active Info Not [facility] Reaction Available [facility] Family History Family Member Diagnosis Comments Start Date Stop Date Source Unknown Family Family History 2016-04-21 2016-04-21 Arely al [place] Member 03:02:13 03:02:13 Social History Social Habit Start Date Stop Date Quantity Comments Source TobaccoUse: 2016-04-19 00:00:00 2016-04-19 Luiz rial [place] 00:00:00 Medications Ordered Filled Start Stop Current Ordering Indication Dosage Frequency Signature Comments Components Source Medication Medication Date Date Medication? Clinician (SIG) Name Name Enalapril Enalapril 2018-03 Yes Blanca [address] [facility] Maleate Maleate 0-25 Millender Luke s - 00:00: [facility] 00 [facility] Sumatriptan Sumatriptan Yes Blanca as [facility] Succinate Succinate 9-26 Millender directed [facility] Cefdinir 2016-03 Yes Martin 1 capsule M emoria 2-29 Buxbaum l 03:00: [place] Levaquin 2016-03 Yes Martin 1 tablet Me moria 2-28 Buxbaum l 03:00: [place] Benzonatate 2016-03 Yes Martin 1 capsule Memoria 2-28 Buxbaum as needed l 03:00: [place] Loratadine 2016-03 Yes Martin 1 tablet Memoria 2-27 Buxbaum l 00:00: Azithromyci 2016-03 Yes Martin not Mem oria [...] tablet M emoria 9-18 Buxbaum l 00:00: Qunol Qunol Yes Blanca as [facility] CoQ10/Ubiqu CoQ10/Ubiqu Millender directed [facility] Nac Nac Yes Blanca [address] [facility]ender [facility] Milk Milk Yes Blanca as [facility] Thistle Thistle Millender directed [facility] Vitamin D3 Vitamin D3 Yes Blanca [address] [facility] Millender [facility] Vitamin K2 Vitamin K2 Yes Blanca as [facility] Millender directed [facility] Vitamin B12 Vitamin B12 Yes Blanca [address] [facility] Amitriptyli Amitriptyli Yes Blanca [address] ne HCl ne HCl Millender at bedtime [facility] Vital Signs Vital Name Observation Time Observation Value Comments Source Weight 2017-02-25 20:15:00 [facility] [place] Height 2017-02-25 20:15:00 [facility] [place] Temperature Oral (F) 2017-02-25 20:15:00 98.3 F [facility] [place] Heart Rate 2017-02-25 20:15:00 [facility] [place] Diastolic (mm Hg) 2017-02-25 20:15:00 Mem orial [place] Systolic (mm Hg) 2017-02-25 20:15:00 Luiz rial [place] Weight 2016-08-22 18:45:00 [facility] [place] Height 2016-08-22 18:45:00 [facility] [place] Temperature Oral (F) 2016-08-22 18:45:00 98.5 F [facility] [place] Heart Rate 2016-08-22 18:45:00 [facility] [place] Diastolic (mm Hg) 2016-08-22 18:45:00 Mem orial [place] Systolic (mm Hg) 2016-08-22 18:45:00 Liuz rial [place] Weight 2016-04-19 15:30:00 [facility] [place] Height 2016-04-19 15:30:00 [facility] [place] Temperature Oral (F) 2016-04-19 15:30:00 97.5 F [facility] [place] Heart Rate 2016-04-19 15:30:00 [facility] [place] Diastolic (mm Hg) 2016-04-19 15:30:00 Mem orial [place] Systolic (mm Hg) 2016-04-19 15:30:00 Luiz rial [place] Heart Rate 2014-11-25 14:45:00 [facility] [place] Diastolic (mm Hg) 2014-11-25 14:45:00 Mem orial [place] Systolic (mm Hg) 2014-11-25 14:45:00 Luiz Ahuja Weight 2014-11-25 14:45:00 [facility] [place] Height 2014-11-25 14:45:00 [facility] [place] Temperature Oral (F) 2014-11-25 14:45:00 97.9 F [facility] [place] Procedures This patient has no known procedures. Encounters Start End Encounter Admission Attending Care Care Encounter Source Date/Time Date/Time Type Type Clinicians Facility Department ID 2020-08-05 2020-08-05 Emergency [facility] [id number] 01:16:00 02:17:00 Marie Granados [id number] [facility] [id number] [facility] [id number] 2020-02-23 2020-02-23 Outpatient [facility] [id number] [facility] 2020-01-28 2020-01-28 Out[facility] [id number] [facility] 2020-01-12 2020-01-12 Out[facility] [id number] [facility] 2019-11-24 2019-11-24 Outpatient [facility] [id number] [facility] 2019-01-29 2019-01-29 [facility] [id number] [facility] 15[facility]00[facility]00 15[facility]00[facility]00 [facility] 2019-01-01 2019-01-01 [facility] [id number] [address] 15:00[facility]00 15:00:00 [facility] 2018-12-03 2018-12-03 [facility] [id number] [address] 14:00[facility]00 14:00:00 [facility] Clin[facility] 2017-04-07 2017-04-07 Outpatient Martin Gay [id number] [facility] 14:52:00 14:52:00 [facility] s DOPA DOPA 2017-03-05 2017-03-05 Outpatient Martni Gay [id number] [facility] 15:02:00 15:02:00 [facility] alWork s DOPA DOPA 2017-03-05 2017-03-05 Outpatient Martin Gay [id number] [facility] 09:36:00 09:36:00 Buxbaum Buxbaum [...]
[2020-08-08] MEDS ORDERED: TRAMADOL HCL 50 MG TAB ONE (19:13)
[2020-08-08 19:30] LABS: Absolute Lymphocytes (CBC) 1.9 K/uL (0.7-4.9); Basophils % 0.8 % (0-1.3); Hematocrit 42.1 % (36.0-45.0); Lymphocytes % 25.7 % (15.3-44.8); MPV 9.7 fL (7.6-11.3); RBC Red Blood Cell Count 4.25 M/uL (3.86-4.86)
[2020-08-08 19:40] LABS: Potassium 4.1 mmol/L (3.5-5.1)
--- NOTE | 2020-08-08 20:52 | ER ---
Nurse's Notes [facility] Name: Adriana Patton Age: 49 yrs Sex: Female : 1970 Arrival Date: 08/08/2020 Time: 12:59 Bed Treatment Private MD: Diagnosis: Dog Bite to the Ankle Presentation: 08/08 13:40 Chief complaint: Patient states: Bit by dog on right foot Juno night, went to [address] and discharged with Augmentin and no instructions. Pt reports cleaning and changing bandage twice daily but foot looks like it might be getting infected. Coronavirus screen: Client denies travel out of the [place] in the last 14 days. At this time, the client does not indicate any symptoms associated with coronavirus-19. Ebola Screen: No symptoms or risks identified at this time. Initial Sepsis Screen: Does the patient meet any 2 criteria? No. Patient's initial sepsis screen is negative. Does the patient have a suspected source of infection? No. Patient's initial sepsis screen is negative. Risk Assessment: Do you want to hurt yourself or someone else? Patient reports no desire to harm self or others. Onset of symptoms was August 04, 2020. Care prior to arrival: None. 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 - Social history:: Smoking status: Patient denies any tobacco usage or history of. Screenin:30 Abuse screen: Denies threats or abuse. Nutritional screening: No deficits noted. bb Tuberculosis screening: No symptoms or risk factors identified. Fall Risk None identified. Assessment: 21:30 General: Appears uncomfortable, Behavior is calm, cooperative. Pain: Complains of pain bb in right ankle. Neuro: Level of Consciousness is awake, alert, obeys commands, Oriented to person, place, time, situation. Cardiovascular: Capillary refill < 3 seconds Patient's skin is warm and dry. Respiratory: Airway is patent Respiratory effort is even, unlabored, Respiratory pattern is regular. GI: No signs and/or symptoms were reported involving the gastrointestinal system. Derm: Skin is pink, warm \T\ dry. Wound noted right ankle and foot. Musculoskeletal: Capillary refill < 3 seconds. Vital Signs: 13:40 BP 153 / 87; Pulse 81; Resp 15; Temp 98.4; Pulse Ox 99% ; Weight 60.33 kg; Height 5 ft. jl7 3 in. (160.02 cm); Pain 8/10; 13:40 Body Mass Index 23.56 (60.33 kg, 160.02 cm) jl7 ED Course: 12:59 Patient arrived in ED. mr 13:49 Triage completed. jl7 13:49 Arm band placed on right wrist. jl7 17:09 Khai Thakkar PA is PHCP. m 17:09 Kirby Rodriguez MD is Attending Physician. jmm 18:31 Inserted saline lock: 20 gauge antecubital area, using aseptic technique. Blood dh4 collected. 20:41 XRAY Ankle RIGHT 3 view In Process Unspecified. EDMS 20:52 Sid Kline DPM is Referral Physician. jmm 21:30 Patient has correct armband on for positive identification. bb 21:30 No provider procedures requiring assistance completed. IV discontinued, intact, bb bleeding controlled, No redness/swelling at site. Pressure dressing applied. 21:32 Dressings: wet to dry dressing to right ankle covered with an edna wrap pt tolerated bb well. Administered Medications: 19:05 Drug: traMADol 50 mg Route: PO; ae4 21:24 Follow up: Response: No adverse reaction bb 21:24 Drug: Zofran (Ondansetron) 4 mg Route: PO; bb 21:30 Follow up: Response: Medication administered at discharge. bb Outcome: 20:52 Discharge ordered by . jmm 21:33 Discharged to home via wheelchair, with crutches, with family. bb 21:33 Condition: stable 21:33 Discharge instructions given to patient, Instructed on discharge instructions, follow up and referral plans. medication usage, wound care, Demonstrated understanding of instructions, follow-up care, medications, wound care, Prescriptions given X 1. 21:34 Patient left the ED. bb Signatures: Dispatcher [employer] EDMS Khai Thakkar PA PA [facility] Phyllis mr CurtisLyubov reese RN RN bb Clara Shaw, ELVIN RN aa5 Sandor Mcgregor RN RN jl7 Sachin Linton RN RN ae4 Alfred Pan [facility] Corrections: (The following items were deleted from the chart) 18:32 18:31 Inserted saline lock: 20 gauge 24 gauge antecubital area, using aseptic [facility] technique. Blood collected. [facility] 18:57 18:14 Clara Shaw, RN is Primary Nurse. aa5 aa5
--- NOTE | 2020-08-08 20:52 | EDPHYS ---
Physician Documentation [facility] Name: Adriana Patton Age: 49 yrs Sex: Female : 1970 Arrival Date: 08/08/2020 Time: 12:59 Bed Treatment Private MD: ED Physician Kirby Rodriguez HPI: 08/08 17:42 This 49 yrs old Female presents to ER via Wheelchair with complaints of Wound jmm Infection. 17:42 The patient presents with an injury. Onset: The symptoms/episode began/occurred jmm acutely, 3 day(s) ago. Associated signs and symptoms: Pertinent negatives: fever. This is a 49 year old female with a history of chronic kidney disease, depression that presents to the ED with complaints of increased right ankle pain. Patient was bit by a dog 3 days ago. Prescribed abx. Patient noticed some abnormal drainage today. Denies fever. . 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 - Social history:: Smoking status: Patient denies any tobacco usage or history of. ROS: 17:42 Constitutional: Negative for fever, chills, and weight loss, Cardiovascular: Negative jmm for chest pain, palpitations, and edema, Respiratory: Negative for shortness of breath, cough, wheezing, and pleuritic chest pain. 17:42 Skin: Positive for punctures. 17:42 All other systems are negative. Exam: 17:42 Head/Face: atraumatic. Eyes: EOMI, no conjunctival erythema appreciated ENT: Moist jmm Mucus Membranes Neck: Trachea midline, Supple Chest/axilla: Normal chest wall appearance and motion. Cardiovascular: Regular rate and rhythm. No edema appreciated Respiratory: Normal respirations, no respiratory distress appreciated Abdomen/GI: Non distended, soft Back: Normal ROM 17:42 Constitutional: The patient appears in no acute distress, alert, awake. 17:42 Skin: multiple punctures noted to the medial and lateral ankle region, no purulent drainage appreciated, . 17:42 Neuro: Orientation: is normal, Mentation: is normal, Memory: is normal. 17:42 Psych: Behavior/mood is pleasant, cooperative. Vital Signs: 13:40 BP 153 / 87; Pulse 81; Resp 15; Temp 98.4; Pulse Ox 99% ; Weight 60.33 kg; Height 5 ft. jl7 3 in. (160.02 cm); Pain 8/10; 13:40 Body Mass Index 23.56 (60.33 kg, 160.02 cm) jl7 MDM: 17:24 Patient medically screened. [facility] 17:49 Data reviewed: vital signs, nurses notes. Counseling: I had a detailed discussion with [facility] the patient and/or guardian regarding:. 20:51 Counseling: I had a detailed discussion with the patient and/or guardian regarding: the [facility] historical points, exam findings, and any diagnostic results supporting the discharge/admit diagnosis, lab results, radiology results, the need for outpatient follow up, to return to the emergency department if symptoms worsen or persist or if there are any questions or concerns that arise at home. ED course: Patient is alert and non toxic in appearance in the ED. NO signs of cellulitis or sepsis appreciated. Patient advised to follow up with podiatry for further evaluation. Patient understood and agrees with the plan of care. . 08/08 17:36 Order name: CBC with Diff; Complete Time: 19:47 [facility] 08/08 17:36 Order name: BMP; Complete Time: 19:47 [facility] 08/08 17:36 Order name: Procalcitonin; Complete Time: 19:47 [facility] 08/08 17:36 Order name: Lactate; Complete Time: 19:04 [facility] 08/08 19:51 Order name: XRAY Ankle RIGHT 3 view [facility] 08/08 17:36 Order name: Saline Lock; Complete Time: 18:32 [facility] 08/08 20:38 Order name: Wound Care: wet to dry; Complete Time: 21:24 [facility] Administered Medications: 19:05 Drug: traMADol 50 mg Route: PO; ae4 21:24 Follow up: Response: No adverse reaction bb 21:24 Drug: Zofran (Ondansetron) 4 mg Route: PO; bb 21:30 Follow up: Response: Medication administered at discharge. priti Disposition: 08/09 07:24 Co-signature as Attending Physician, Kirby Rodriguez MD I agree with the assessment and martha plan of care. Disposition: 08/08/20 20:52 Discharged to Home. Impression: Dog Bite to the Ankle. - Condition is Stable. - Discharge Instructions: Animal Bite. - Prescriptions for Bactrim DS 800- 160 mg Oral Tablet - take 1 tablet by ORAL route every 12 hours for 10 days; 20 tablet. - Medication Reconciliation Form, Thank You Letter, Antibiotic Education, Prescription Opioid Use form. - Follow up: Sid Kline DPM; When: 2 - 3 days; Reason: Recheck today's complaints, Continuance of care, Re-evaluation by your physician. Signatures: Dispatcher [employer] EDMS Kirby Rodriguez MD MD cha Mickail, Joel, PA PA jmm Ballard, Brenda, RN RN bb Sandor Mcgregor RN RN jl7 Sachin Linton RN RN ae4 Corrections: (The following items were deleted from the chart) 08/08 21:34 20:52 08/08/2020 20:52 Discharged to Home. Impression: Dog Bite to the Ankle. Condition bb is Stable. Forms are Medication Reconciliation Form, Thank You Letter, Antibiotic Education, Prescription Opioid Use. Follow up: Dr. Sid Kline; When: 2 - 3 days; Reason: Recheck today's complaints, Continuance of care, Re-evaluation by your physician. tessa
--- NOTE | 2020-08-08 21:22 | RAD REPORT ---
EXAM DESCRIPTION: RAD - Ankle Right 3 View - 08/08/2020 8:41 pm CLINICAL HISTORY: ANIMAL BITE COMPARISON: No comparisons FINDINGS: No fracture, dislocation or periosteal reaction. No joint effusion seen. No joint space na rrowing. Soft tissue swelling is present. Wound is seen lateral ankle without foreign body. No suspic ious soft tissue air collection. IMPRESSION: Negative right ankle for acute bone or joint finding. Lateral soft tissue injury with no foreign body or abnormal air collection.
[2020-08-08] MEDS ORDERED: ONDANSETRON 4 MG (ODT) TAB ONE (21:45)
[2020-08-08 21:56] VITALS: BP 153/87; TEMP 98.4; O2SAT 99
== END 2020-08-08 21:34 | disposition home or self-care (01) ==
LOC: ER 12:56
DX: S91.051A Open bite, right ankle, initial encounter (principal); W54.0XXA Bitten by dog, initial encounter; N18.9 Chronic kidney disease, unspecified; F32.9 Major depressive disorder, single episode, unspecified; F43.10 Post-traumatic stress disorder, unspecified
CPT/HCPCS: 36415; 80048; 83605; 84145; 85025; 99284